=== PATIENT | female | born 1995 | race Caucasian/White ===

== ENCOUNTER 2018-10-30 14:41 | Emergency (ER) | payer BC ==
[2018-10-30 15:26] LABS: Urine Blood TRACE (NEG); Urine Glucose NEGATIVE (NEG); Urine Protein NEGATIVE (NEG)
[2018-10-30 16:14] LABS: Absolute Lymphocytes (CBC) 1.4 K/uL (0.7-4.9); Basophils % 0.5 % (0-1.3); Lymphocytes % 25.7 % (15.3-44.8); MPV 8.6 fL (7.6-11.3); RBC Red Blood Cell Count 4.14 M/uL (3.86-4.86)
[2018-10-30 16:19] LABS: Urine Bacteria 20-50 /HPF (<20); Urine Culture Reflex Order REFLEXED; Urine RBC <5 /HPF (NONE SEEN)
[2018-10-30 16:31] LABS: ALT/SGPT 15 U/L (12-78); AST/SGOT 12 U/L (15-37); Albumin 3.4 g/dL (3.4-5.0); Alkaline Phosphatase 46 U/L (45-117); BUN Blood Urea Nitrogen 6 mg/dL (7-18); Bicarbonate 23 mmol/L (21-32); Bilirubin Total 0.9 mg/dL (0.2-1.0); Glucose Level 79 mg/dL (74-106); Potassium 3.5 mmol/L (3.5-5.1); Sodium Level 139 mmol/L (136-145)
--- NOTE | 2018-10-30 17:01 | RAD REPORT ---
EXAM DESCRIPTION: US - Renal Ultrasound-Complete - 10/30/2018 4:31 pm CLINICAL HISTORY: back pain Flank pain COMPARISON: <Comparisons> FINDINGS: Both kidneys are normal in size, shape and echotexture. The right kidney measures 9.9 x 4.2 x 3.7 cm. No hydronephrosis, focal mass or perinephric fluid. The left kidney measures 10.0 x 5.7 x 3.8 cm. No hydronephrosis, focal mass or perinephric fluid. The urinary bladder is incompletely distended without gross abnormality seen. IMPRESSION: Unremarkable renal sonogram.
--- NOTE | 2018-10-30 19:09 | ER ---
Nurse's Notes [facility] Name: Rain Adams Age: 23 yrs Sex: Female : 1995 Arrival Date: 10/30/2018 Time: 14:44 Bed 5 Private MD: Unknown, Unknown Diagnosis: Threatened ;Urinary tract infection, site not specified Presentation: 10/30 14:51 Presenting complaint: Patient states: lower back pain radiating around to abdomen that aa5 began yesterday. Pt denies burning with urination. Pt denies vaginal bleeding. Reports being 11 weeks . Transition of care: patient was not received from another setting of care. Onset of symptoms was October 2018. Risk Assessment: Do you want to hurt yourself or someone else? Patient reports no desire to harm self or others. Initial Sepsis Screen: Does the patient meet any 2 criteria? No. Patient's initial sepsis screen is negative. Does the patient have a suspected source of infection? No. Patient's initial sepsis screen is negative. Care prior to arrival: None. 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 - Social history:: Smoking status: Patient/guardian denies using tobacco. - Ebola Screening: : No symptoms or risks identified at this time. Screenin:22 Abuse screen: Denies threats or abuse. Denies injuries from another. Nutritional jl7 screening: No deficits noted. Tuberculosis screening: No symptoms or risk factors identified. Fall Risk None identified. Assessment: 15:15 General: Appears in no apparent distress. uncomfortable, Behavior is calm, cooperative, jl7 appropriate for age. Pain: Complains of pain in lumbar area Pain radiates to right lower quadrant and left lower quadrant Pain currently is 2 out of 10 on a pain scale. at worst was 10 out of 10 on a pain scale. Quality of pain is described as aching, Pain began 1 day ago. Is intermittent. Neuro: Level of Consciousness is awake, alert, obeys commands, Oriented to person, place, time, situation, Moves all extremities. Full function Gait is steady, Speech is normal. Cardiovascular: Patient's skin is warm and dry. Respiratory: Airway is patent Respiratory effort is even, unlabored, Respiratory pattern is regular, symmetrical. GI: Abdomen is round non-distended. : Urine is cloudy, Reports urinary frequency, since "A couple of days." Denies burning with urination. EENT: No signs and/or symptoms were reported regarding the EENT system. Derm: Skin is pink, warm \\T\\ dry. Musculoskeletal: No signs and/or symptoms reported regarding the musculoskeletal system. 16:15 Reassessment: Patient appears in no apparent distress at this time. No changes from jl7 previously documented assessment. Patient and/or family updated on plan of care and expected duration. Pain level reassessed. Patient is alert, oriented x 3, equal unlabored respirations, skin warm/dry/pink. 18:00 Reassessment: Unable to obtain FHT, ERP notified. jl7 18:30 Reassessment: ERP attempted to assess FH activity, unable to verify at this time. jl7 19:22 Reassessment: Patient appears in no apparent distress at this time. Patient and/or ak1 family updated on plan of care and expected duration. Pain level reassessed. Patient is alert, oriented x 3, equal unlabored respirations, skin warm/dry/pink. Patient states feeling better. Patient states symptoms have improved. Vital Signs: 14:54 BP 131 / 73; Pulse 89; Resp 16 S; Temp 98.3(TE); Pulse Ox 98% on R/A; Weight 98.88 kg aa5 (R); Height 5 ft. 5 in. (165.10 cm) (R); Pain 2/10; 15:22 BP 123 / 74; Pulse 90; Resp 16 S; Pulse Ox 100% on R/A; jl7 14:54 Body Mass Index 36.28 (98.88 kg, 165.10 cm) aa5 ED Course: 14:44 Patient arrived in ED. ag5 14:45 Unknown, Unknown is Private Physician. ag5 14:51 Arm band placed on. aa5 14:53 Triage completed. aa5 14:56 Andrew, Jahala, RN is Primary Nurse. jl7 15:22 Patient has correct armband on for positive identification. Placed in gown. Bed in low jl7 position. Call light in reach. Side rails up X 1. Pulse ox on. NIBP on. Warm blanket given. 15:22 Urine collected: clean catch specimen, cloudy, saeed colored. [facility] 15:24 Stevie Dodd PA is PHCP. [facility] 15:24 Adrien Aguirre MD is Attending Physician. [facility] 16:05 Initial lab(s) drawn, by al, sent to lab. Inserted saline lock: 22 gauge in right jb1 antecubital area, using aseptic technique. Blood collected. 16:11 Urine Dipstick--Ancillary (enter results) Sent. [facility] 16:32 US Rp Exam Complete In Process Unspecified. EDDE 16:34 Ultrasound completed. Patient tolerated well. Patient moved back from ultrasound. lc3 18:50 Assist provider with pelvic exam: Set up pelvic tray. Performed by Stevie MCKEON jl Patient tolerated well. 19:08 PHCP role handed off by Stevie Dodd PA snw 19:08 Kimberlee Obrien FNP-C is PHCP. snw 19:22 IV discontinued, intact, bleeding controlled, No redness/swelling at site. Pressure ak1 dressing applied. Administered Medications: 19:20 Drug: Rocephin - (cefTRIAXone) 1 grams Route: IVPB; Infused Over: 30 mins; Site: right ak1 antecubital; 19:21 Follow up: IV Status: Completed infusion; IV Intake: 10ml ak1 Intake: 19:21 IV: 10ml; Total: 10ml. ak1 Outcome: 19:09 Discharge ordered by . snw 19:21 Discharged to home ambulatory, with family. ak1 19:21 Condition: good 19:21 Discharge instructions given to patient, family, Instructed on discharge instructions, follow up and referral plans. no drinking with medication, no driving heavy equipment, medication usage, safe sex practices, Demonstrated understanding of instructions, follow-up care, medications, Prescriptions given X 1. 19:27 Patient left the ED. ak1 Signatures: Dispatcher [employer] EDMS Rj Batres jb1 Kimberlee Obrien FNP-C FNP-Csnw Stevie Dodd PA PA jmm Calderon, Audri, RN RN aa5 Saeed Jones, RN RN ak1 Gladis Boone Jahala RN RN jl7 Kannan Krueger ag5
--- NOTE | 2018-10-30 19:10 | EDPHYS ---
Physician Documentation [facility] Name: Rain Adams Age: 23 yrs Sex: Female : 1995 Arrival Date: 10/30/2018 Time: 14:44 Bed 5 Private MD: Unknown, Unknown ED Physician Adrien Aguirre HPI: 10/30 15:11 This 23 yrs old Female presents to ER via Ambulatory with complaints of Back jmm Pain, Abdominal Pain, 11 Weeks Preg. 15:11 The patient presents with pain that is acute, with no known mechanism of injury. Onset: jmm The symptoms/episode began/occurred gradually, 1 day(s) ago. The pain radiates to the pelvis. Associated signs and symptoms: Pertinent negatives: fever, hematuria, incontinence, numbness, tingling, urinary retention, vomiting, weakness. This is a 23 year old that presents to the ED with complaints of lower back pain which radiated to her lower abdomen and pelvis yesterday. patient states abdominal pain has decreased but pain remains in the lower back. Denies fever, denies vomiting, denies diarrhea. . 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 - Social history:: Smoking status: Patient/guardian denies using tobacco. - Ebola Screening: : No symptoms or risks identified at this time. ROS: 15:11 Constitutional: Negative for fever, chills, and weight loss, Cardiovascular: Negative jmm for chest pain, palpitations, and edema, Respiratory: Negative for shortness of breath, cough, wheezing, and pleuritic chest pain. 15:11 Abdomen/GI: Positive for abdominal pain. 15:11 Abdomen/GI: Negative for nausea and vomiting, diarrhea. 15:11 Back: Positive for lower back pain. 15:11 MS/extremity: Positive for pain. 15:11 All other systems are negative. Exam: 15:11 Constitutional: This is a well developed, well nourished patient who is awake, alert, jmm and in no acute distress. Head/Face: atraumatic. Eyes: EOMI, no conjunctival erythema appreciated ENT: Moist Mucus Membranes Neck: Trachea midline, Supple Chest/axilla: Normal chest wall appearance and motion. Cardiovascular: Regular rate and rhythm. No edema appreciated Respiratory: Normal respirations, no respiratory distress appreciated 15:11 Abdomen/GI: Inspection: abdomen appears normal, Bowel sounds: normal, Palpation: abdomen is soft and non-tender, in all quadrants. 15:11 Back: CVA tenderness, is absent, is noted bilaterally. 15:11 Musculoskeletal/extremity: ROM: intact in all extremities. 15:11 Skin: Appearance: Color: normal in color. 15:11 Neuro: Orientation: is normal, Mentation: is normal, Memory: is normal, Motor: is normal. 15:11 Psych: Behavior/mood is pleasant, cooperative. Vital Signs: 14:54 BP 131 / 73; Pulse 89; Resp 16 S; Temp 98.3(TE); Pulse Ox 98% on R/A; Weight 98.88 kg aa5 (R); Height 5 ft. 5 in. (165.10 cm) (R); Pain 2/10; 15:22 BP 123 / 74; Pulse 90; Resp 16 S; Pulse Ox 100% on R/A; jl7 14:54 Body Mass Index 36.28 (98.88 kg, 165.10 cm) aa5 MDM: 15:36 Patient medically screened. [facility] 17:38 Data reviewed: vital signs, nurses notes. [facility] 17:42 Data reviewed: lab test result(s), radiologic studies, ultrasound. Counseling: I had a [facility] detailed discussion with the patient and/or guardian regarding: the historical points, exam findings, and any diagnostic results supporting the discharge/admit diagnosis, lab results, radiology results, the need for outpatient follow up, to return to the emergency department if symptoms worsen or persist or if there are any questions or concerns that arise at home. ED course: Patient is alert and non toxic in appearance in the ED. Abdomen is soft and non tender to palpation. I do not suspect appendicitis. Patient will be prescribed oral antibiotics. Patient is advised to follow up with ob for reevaluation and otherwise given strict return precautions. patient understood and agrees with the plan of care. . 18:47 Transition of care: After a detail discussion of the patient's case, care is [facility] transferred to Kimberlee GURROLA. ED course: Due to confirmed IUP unable to contact US for emergent US to evaluate for demise. Unable to to obtain FHT. Cervix is closed. Patient advised of the possibility of demise/threatened . Patient is given strict return precautions. This case was discussed with Dr. Aguirre whom agrees with the plan of care. . 10/30 15:09 Order name: Urine Microscopic Only; Complete Time: 16:26 10/30 15:12 Order name: Urine Dipstick--Ancillary (enter results) [facility] 10/30 15:12 Order name: Urine --Ancillary (enter results); Complete Time: 15:45 [facility] 10/30 15:14 Order name: Urine Dipstick-Ancillary; Complete Time: 15:45 [facility] 10/30 15:45 Order name: CBC with Diff; Complete Time: 16:26 [facility] 10/30 15:45 Order name: CMP; Complete Time: 16:33 [facility] 10/30 15:45 Order name: Saline Lock; Complete Time: 16:05 [facility] 10/30 15:45 Order name: US Rp Exam Complete; Complete Time: 17:05 [facility] 10/30 16:22 Order name: Urine Culture [facility] 10/30 17:30 Order name: Heart Tones; Complete Time: 18:27 [facility] 10/30 18:17 Order name: Abo/rh Typing; Complete Time: 19:08 [facility] 10/30 18:18 Order name: Quantitative Hcg [facility] Administered Medications: 19:20 Drug: Rocephin - (cefTRIAXone) 1 grams Route: IVPB; Infused Over: 30 mins; Site: right ak1 antecubital; 19:21 Follow up: IV Status: Completed infusion; IV Intake: 10ml ak1 Disposition: 10/30/18 19:09 Discharged to Home. Impression: Threatened , Urinary tract infection, site not specified. - Condition is Stable. - Discharge Instructions: Threatened Miscarriage, Urinary Tract Infection, Adult, Pelvic Rest. - Prescriptions for Macrobid 100 mg Oral Capsule - take 1 capsule by ORAL route every 12 hours for 7 days; 14 capsule. - Medication Reconciliation Form, Thank You Letter, Antibiotic Education, Prescription Opioid Use, Work release form form. - Follow up: Private Physician; When: 2 - 3 days; Reason: Recheck today's complaints, Continuance of care, Repeat Beta-HCG (48 Hours), Re-evaluation by your physician. Addendum: 11/02/2018 09:25 Co-signature as Attending Physician, Adrien Aguirre MD I agree with the assessment and k dr plan of care. Signatures: Dispatcher [employer] EDMS Adrien Aguirre MD MD [facility] Kimberlee Obrien, GIGI-C RECREATIONAL ASSISTANT-CsnStevie Lees PA PA m Erika Castlilo, RN RN aa5 Mayra Jones RN RN ak1 Corrections: (The following items were deleted from the chart) 10/30 18:52 18:47 ED course: Due to confirmed IUP unable to contact US for emergent US to evaluate [facility] for demise. Unable to to obtain FHT. Cervix is closed. Patient advised of the possibility of demise/threatened . Patient is given strict return precautions. . [facility] 19:27 19:09 10/30/2018 19:09 Discharged to Home. Impression: Threatened ; Urinary ak1 tract infection, site not specified. Condition is Stable. Discharge Instructions: Threatened Miscarriage, Urinary Tract Infection, Adult, Pelvic Rest. Prescriptions for Macrobid 100 mg Oral Capsule - take 1 capsule by ORAL route every 12 hours for 7 days; 14 capsule. and Forms are Medication Reconciliation Form, Thank You Letter, Antibiotic Education, Prescription Opioid Use. Follow up: Private Physician; When: 2 - 3 days; Reason: Recheck today's complaints, Continuance of care, Repeat Beta-HCG (48 Hours), Re-evaluation by your physician. snw
[2018-10-30] MEDS ORDERED: CEFTRIAXONE/SWI 1gm 1 GM/10 ML SYR ONE (19:18)
[2018-10-30 20:35] VITALS: TEMP 98.3
[2018-10-30 20:36] VITALS: BP 123/74; O2SAT 100
== END 2018-10-30 19:27 | disposition home or self-care (01) ==
LOC: ER 14:41
DX: O20.0 Threatened abortion (principal); O23.41 Unspecified infection of urinary tract in pregnancy, first trimester; Z3A.11 11 weeks gestation of pregnancy; Z88.5 Allergy status to narcotic agent
CPT/HCPCS: 87088; 85025; 87086; 36415; 86900; 81025; 86901; 84702; 80053; 76770; 96374; 99284; J0696; 81003; 81015

== ENCOUNTER 2020-10-10 23:53 | Emergency (ER) | payer BC, OTHER ==
--- OUTSIDE RECORDS SUMMARY | 2020-10-10 23:56 | XMS REPORT | Continuity of Care Document ---
:1995 Author Organization [facility] t Address [address] [place] [address] Care Team Providers Name Role Phone Lab, Fam Pob I Attending Clinician Unavailable Juan Carlos CH, L Attending Clinician Doctor Unassigned, Name Attending Clinician Unavailable Coretta CH Attending Clinician Coretta CH Admitting Clinician Payers Payer Name Policy Type Policy Number Effective Date Expiration Date S ource Problems This patient has no known problems. Allergies, Adverse Reactions, Alerts Allergy Allergy Status Severity Reaction(s) Onset Inactive Treating Comm ents Source Name Type Date Date Clinician hydrocod DA Active SV 2019-0 [facility] [place] acetamin DA Active SV 2018-0 [facility] ophen [facility] [place] Medications This patient has no known medications. Procedures This patient has no known procedures. Encounters Start End Encounter Admission Attending Care Care Encounter Source Date/Time Date/Time Type Type Clinicians Facility Department ID 2020-02-18 2020-02-18 Laboratory Lab, [facility] 1.2.840.114 [id number] 10:14:58 10:34:58 Only Fam Pob I Health 350.1.13.10 [place] 4.2.7.2.686 Professio [phone] [place] [address] [address] 2019-10-26 2019-10-26 Telephone Ad, [facility] [id number] 00:00:00 00:00:00 Abi Marquez 350.1.13.10 [place] 4.2.7.2.686 Professio [phone] [address] 2019-10-15 2019-10-15 Routine Adum, [facility] 1.2.840.114 [id number] 09:21:04 10:09:05 Abi Marquez 350.1.13.10 Visit [place] 4.2.7.2.686 Professio [phone] [address] 2019-10-15 2019-10-15 Orders Doctor [place] 1.2.840.114 [id number] 00:00:00 00:00:00 Only Unassigned, FATOU 350.1.13.10 [facility] 4.2.7.2.686 [id number] 009 2019-09-16 2019-09-16 [facility] 1.2.840.114 [id number] 00:00:00 00:00:00 Marianne Marquez 350.1.13.10 [place] 4.2.7.2.686 Professio [phone] [address] 2019-09-09 2019-09-10 [facility] 1.2.840.114 [id number] 06:02:00 21:50:00 Encounter Marianne Marquez 350.1.13.10 [place] 4.2.7.2.686 [place] [phone] 083 2019-09-09 2019-09-09 Orders Doctor [place] 1.2.840.114 [id number] 00:00:00 00:00:00 Only Unassigned, FATOU 350.1.13.10 [facility] 4.2.7.2.686 [id number] 009 2019-09-08 2019-09-08 Telephone [facility] 1.2.840.114 [id number] 00:00:00 00:00:00 Marianne Marquez 350.1.13.10 [place] 4.2.7.2.686 javicolleen [id number] nal [address] Building Results Test Description Test Time Test Comments Results Result Comments Source URINALYSIS COMPLETE 2019-07-27 14:39:00 Test Item Value Reference Range Interpretation Comme nts UA COLOR (test code = COLU) YELLOW YELLOW UA APPEARANCE (test code = APPU) Slightly-Cloudy CLEAR UA GLUCOSE DIPSTICK (test code = DGLUU) NEGATIVE NEG UA BILIRUBIN DIPSTICK (test code = BILU) NEGATIVE NEG UA KETONE DIPSTICK (test code = KETU) NEGATIVE NEG UA SPECIFIC GRAVITY (test code = SGU) 1.003 1.001-1.035 N UA BLOOD DIPSTICK (test code = RODOLFO) NEG NEG UA PH DIPSTICK (test code = BUTCH) 7.0 5-9 UA PROTEIN DIPSTICK (test code = PROU) NEGATIVE NEG UA UROBILINIOGEN DIPSTICK (test code = URO) NEGATIVE mg/dL NEG UA NITRITE DIPSTICK (test code = SCOTT) NEG NEG UA LEUKOCYTE ESTERASE DIPSTICK (test code = LEUU) 2+ NEG A UA WBC (test code = WBCU) 6-10 #/hpf NONE SEEN A UA RBC (test code = RBCU) 3-5 #/hpf NONE SEEN A UA EPITHELIAL CELLS (test code = EPIU) MODERATE #/HPF RARE-FEW A UA BACTERIA (test code = BACU) MANY /HPF RARE-FEW A UA HYALINE CAST (test code = HYALU) 0-2 #/hpf A UA MUCUS (test code = MUCU) RARE NONE SEEN URINE SAMPLE: CLEAN CATCHCOMPREHENSIVE METABOLIC [id number] 14:20:00 Test Item Value Reference Range Interpretation Comments SODIUM (test code = NA) 139 mEq/L 135-145 N POTASSIUM (test code = K) 3.5 mEq/L 3.5-5.0 N CHLORIDE (test code = CL) 105 mEq/L 100-115 N CARBON DIOXIDE (test code = CO2) 24 mEq/L 22-31 N ANION GAP (test code = GAP) 13.20 10-20 N GLUCOSE (test code = GLU) 71 mg/dL 65-110 N BLOOD UREA NITROGEN (test code = 7 mg/dL 7-18 N BUN) GLOMERULAR FILTRATION RATE (test 102 ml/min >60 N code = GFR) CREATININE (test code = CREAT) 0.7 mg/dL 0.5-1.0 N TOTAL PROTEIN (test code = PROT) 7.0 gm/dL 6.3-8.2 N ALBUMIN (test code = ALB) 2.8 gm/dL 3.4-4.8 L CALCIUM (test code = CA) 8.7 mg/dL 8.4-10.2 N BILIRUBIN TOTAL (test code = BILT) 0.5 mg/dL 0.2-1.0 N SGOT/AST (test code = AST) 14 units/L 15-37 L SGPT/ALT (test code = ALT) 14 units/L 12-78 N ALKALINE PHOSPHATASE TOTAL (test 77 units/L 46-116 N code = ALKP) UA RFLX MICR CULT IF [id number] 14:07:00 Test Item Value Reference Range Interpretation Comments UA COLOR (test code = COLU) YELLOW YELLOW UA APPEARANCE (test code = CLOUDY CLEAR A APPU) UA GLUCOSE DIPSTICK (test code NEGATIVE NEG = DGLUU) UA BILIRUBIN DIPSTICK (test NEGATIVE NEG code = BILU) UA KETONE DIPSTICK (test code NEGATIVE NEG = KETU) UA SPECIFIC GRAVITY (test code 1.006 1.001-1.035 N = SGU) UA BLOOD DIPSTICK (test code = NEG NEG RODOLFO) UA PH DIPSTICK (test code = 6.0 5-9 BUTCH) UA PROTEIN DIPSTICK (test code NEGATIVE NEG = PROU) UA UROBILINIOGEN DIPSTICK NEGATIVE mg/dL NEG (test code = URO) UA NITRITE DIPSTICK (test code NEG NEG = SCOTT) UA LEUKOCYTE ESTERASE DIPSTICK 2+ NEG A (test code = LEUU) UA WBC (test code = WBCU) 6-10 #/hpf NONE SEEN A UA RBC (test code = RBCU) 3-5 #/hpf NONE SEEN A UA EPITHELIAL CELLS (test code MODERATE #/HPF RARE-FEW A = EPIU) UA BACTERIA (test code = BACU) MANY /HPF RARE-FEW A Indication for culture: Suprapubic PainCBC W/AUTO [id number] 13:59:00 Test Item Value Reference Range Interpretation Comments WHITE BLOOD CELL (test code = WBC) 9.2 K/mm3 6.6-12.1 N RED BLOOD CELL (test code = RBC) 3.74 M/mm3 3.45-5.01 N HEMOGLOBIN (test code = HGB) 11.7 g/dL 10.7-13.9 N HEMATOCRIT (test code = HCT) 35.0 % 32.1-42.1 N MEAN CELL VOLUME (test code = MCV) 94 fL 84.1-94.8 N MEAN CELL HGB (test code = MCH) 31.3 pg 27-35 N MEAN CELL HGB CONCETRATION (test 33.4 gm/dL 32.2-34.1 N code = MCHC) RED CELL DISTRIBUTION WIDTH (test 12.9 % 12.4-16.5 N code = RDW) PLATELET COUNT (test code = PLT) 224 K/mm3 133-385 N MEAN PLATELET VOLUME (test code = 10.1 fl 9.1-12.7 N MPV) NEUTROPHIL % (test code = NT%) 75.7 % 56.5-79.4 N LYMPHOCYTE % (test code = LY%) 13.0 % 14.3-34.3 L MONOCYTE % (test code = MO%) 10.5 % 5.1-10.4 H EOSINOPHIL % (test code = EO%) 0.2 % 0.1-3.0 N BASOPHIL % (test code = BA%) 0.2 % 0.1-1.0 N NEUTROPHIL # (test code = NT#) 6.9 K/mm3 LYMPHOCYTE # (test code = LY#) 1.2 K/mm3 MONOCYTE # (test code = MO#) 1.0 K/mm3 EOSINOPHIL # (test code = EO#) 0.02 K/mm3 BASOPHIL # (test code = BA#) 0.0 K/mm3 MANUAL DIFF REQUIRED (test code = NO MDIFF) RBC MORPHOLOGY REQUIRED (test code NORMAL NORMAL = RBCM) PLATELET MORPHOLOGY REQUIRED (test NORMAL NORMAL code = PLTMR) - US PREG AFTER [id number] 14:26:00 Patient Name: ANDREW HAWKINS Unit No: [id number] EXAMS: CPT CODE: [id number] US PREG AFTER [address] [facility] [address] [place], [place] [address] OBSTETRICAL ULTRASOUND REPORT Pat. Name: ANDREW HAWKINS Pat. No: [id number] Study Date: 04/20/2019 1:01pm , Age: 05 1995, 23 Pregnancies: 3, Para 1 LMP: Unknown GA by US: 19w3d GA Selected: 19w2d (From Known E) BILLY: 09/12/2019 Referring MD: ARJUN QUINTANILLA Furnace Erector: Aurelio Willoughby RDMS, T CPT4: [id number] Admitting MD: ARJUN QUINTANILLA Hist/Ind: SCAN 1 ANATOMY MEASUREMENTS AGE GROWTH EVALUATION Measurement GA Range Srce %for GA Ratios ----- ---- ------- BPD 4.6 cm 19w6d (40i4z-48z5o) Hadl BPD 76% FL/BPD 0.65 HC 16.9 qh05e1c (27d4l-55i8a) Hadl HC 54% FL/AC 0.20 APD 4.8 cm APD HC/AC 1.14 (1.06 - 1.25) TAD 4.6 cm TAD CI 0.81 (0.70 - 0.86) AC 14.8 kv55j7f (60v6m-06p7m) Hadl AC 60% FL 3.0 cm 18w6d (11f4p-11z8d) Hadl FL 42% HL 3.0 cm 19w6d (62a9p-56r9v) Willis HL 60% GA for sonogram 19w3d (84x3q-81p3q) Weight Estimate: based on (BPD,HC,AC,FL) Hadlock Weight: 306 gm (262-351) Hadlock :0lbs, 10oz Cervical Length: 3.6 cm Heart Rate: 130 bpm MATERNAL ANATOMY Ovaries LxHxW (cm) Right 3.1 x 2.8 x 2.3 Vol: 10.5cc Left 3.1 x 1.5 x 2.1 Vol: 5.1cc Ovarian Cysts LxHxW (cm) R1: 1.6 x 1.4 x 1.7 CLINICAL SUMMARY Type of Gestation: Mayes Intrauterine in breech presentation. size is appropriate for gestational age. motion and organs seen: heart motion seen somatic activity observed body and limb movements seen [facility] Rad[facility] Department PHYS: Arjun Antoine [address] : 1995 AGE: 23 SEX: Marcie [place], [place] [address] LOC: F.RAD PHONE #: [phone] EXAM DATE: 04/20/2019 STATUS: REG CLI FAX #: [phone] RAD NO: Page 1 Signed Report (CONTINUED) Patient Name: ANDREW HAWKINS Unit No: [id number] EXAMS: CPTCODE: [id number] US PREG AFTER 1ST TRI 64662 <Continued> Four chamber heart observed Left ventricular outflow tract (LVOT) seen Right ventricular outflow tract (RVOT) seen Normal intracranial anatomy seen Umbilical cord insertion in fetus seen stomach, Renal Fossa, Bladder and Spine seen Three vessel umbilical cord noted abnormalities observed: None seen at this exam Placental location: Posterior Placental maturity : Grade 1 There is no evidence of placenta previa. Amniotic fluid volume is normal. Uterus and adnexa: No significant abnormality is seen.Thank you for allowing us to participate in the care of this patient. Ran Sheehan M.D. Electronic Signature 04/20/2019 02:26pm at 1426 Reported and signed by: Ran Sheehan MD CC: Arjun Quintanilla MD Technologist: Aurelio Willoughby RDMS, RVT Probe: Trnscrbd D/ (1426) [id number] Orig Print D/T: S: 04/20/2019 (1426) [facility] Radiology Department PHYS: Arjun Antoine [address] : 1995 AGE: 23 SEX: Marcie [place] [address] LOC: CharliRAD PHONE #: [phone] EXAM DATE: 04/20/2019 STATUS:REG CLI FAX #: [phone] RAD NO: Page 2 Signed Report Patient Name: ANDREW HAWKINS Unit No: [id number] EXAMS: CPT CODE: [id number] US PREG AFTER TRI 501[address] <Continued> [facility] NAME: ANDREW HAWKINS RadiologyDepartment PHYS: [email or web address] - Arjun Quintanilla [address]OB: 1995 AGE: 23 SEX: Marcie [place] [address] LOC:CharliRAD PHONE #: [phone] EXAM DATE: 04/20/2019 STATUS: REG CLI FAX #: [phone] RAD NO: Page 3 Signed ReportCHEMISTRY MISCELLANEOUS [id number] 12:14:00 Test Item Value Reference Range Interpretation Comments CHEMISTRY TEST SEE REPORT CHROMOSIME (test code = MICROARRAY TESTC) ANALYSIS RESUL T: Normal Female CHEMISTRY TEST TEST NOT PERFORMED RESULT (test code = RESULTC) CHEMISTRY TEST REF TEST NOT PERFORMED RANGE (test code = REFC) CHEMISTRY TEST TEST NOT PERFORMED UNITS (test code = UNITC) ANORACHEMISTRY MISCELLANEOUS [id number] 12:14:00 Test Item Value Reference Range Interpretation Comments CHEMISTRY TEST (test SEE REPORT CHROM OSIME code = TESTC) MICROARRAY ROGERS LYSIS RESULT: Normal Female ANORAPRODUCTS OF [id number] 16:46:00 RUN DATE: 11/09/18 [facility] PAGE 1 RUN TIME: 1927 Specimen Inquiry RUN USER: INTERFACE PATIENT: ANDREW HAWKINS [facility] [id number] AGE/SX: 23/F ROOM: RE11/06/18REG DR: Arjun Quintanilla MD : [birth year] BED: DIS: STATUS: [facility] TLOC: SPEC #: [id number] RECD: 11/06/18 STATUS: [facility] #: [id number] BENIGNO: 11/06/18- SUBM DR: Arjun Quintanilla MD ENTERED: 11/06/18 SP TYPE: POC[ OTHR DR: ORDERED: LEVEL IV CODES: U01102 - ENDOMETRIUM, NO PROCEDURES: LEVEL IV (Incomplete) TISSUES: ENDOMETRIUM, NOS - POC CLINICAL HISTORY 23 year old, missed @ 12 weeks(wpd) FINAL DIAGNOSIS Products of conception: - hydropic placental tissue -decidua - rare fragments of embryonic tissue CPT code(s): 023[address] [facility]/wpd 11/09/18 GROSS DESCRIPTION ANATOMIC SOURCE OF TISSUE (per Requisition): Products of conception The specimen is received in a formalin-filled container, labeled with the patient's name and designated "products of conception". The specimen consists of multiple portions of vivas and red tissue on a piece of Telfa pad and a suction collection container aggregating to 6 x 4 x 2.5 cm. Repres entative pieces are submitted in A1 and A2. hz/wpd 11/06/18 @ 1807 MICROSCOPIC DESCRIPTION Placental and decidual tissue is present. Chorionic villi are hydropic. No trophoblastic hyperplasia, central cisterns or trophoblastic inclusions are identified. cds/wpd 11/09/18 CONTINUED ON NEXT PAGE RUN DATE: 11/09/18 [facility] PAGE 2 RUN TIME: 1927 Specimen Inquiry RUN USER: INTERFACE JESUS EC #: [id number] PATIENT: ROSSANDREW MCDONALD #[id number] (Continued) Signed Amaury Mora 11/09/18 1646 END OF REPORT HCG [id number] 16:31:00 Test Item Value Reference Range Interpretation Comments HCG SERUM (test 5349 INTERPRETATI ON:VALUES BETWEEN code = HCG) 15-20 milliInte rnational units/mL NEED T O BERETESTED WITHIN 48 HOURS . All units for these ranges ar e in milliInternatio nalunits/mL0-1 WK AFTER CONCEP TION 0-50 1-2 W KS AFTER CONCEPTION 40-3002-3 WKS A FTER CONCEPTION 100-1 ,0003-4 WKS AFTER CONCEPTIO N 500-6,0001-2 MO NTHS AFTER CONCEPTION 5,000-200,0002- 3 MONTHS AFTER CONCEPTION 10,000-100,0002 ND TRIMESTER 3,000-50,0003RD TRIMESTER 1 ,000-50,000 SPECIMENS WITH AN HCG LEVEL FROM 0-6 milliInternatio nalunits/mL SHOULD BE CONSI DERED NEGATIVE CHEMISTRY 7 [id number] 16:05:00 Test Item Value Reference Range Interpretation Comments SODIUM (test code = NA) 138 mEq/L 135-145 N POTASSIUM (test code = K) 4.0 mEq/L 3.5-5.0 N CHLORIDE (test code = CL) 104 mEq/L 100-115 N CARBON DIOXIDE (test code = CO2) 27 mEq/L 22-31 N ANION GAP (test code = GAP) 11.00 10-20 N GLUCOSE (test code = GLU) 77 mg/dL 65-110 N BLOOD UREA NITROGEN (test code = 6 mg/dL 7-18 L BUN) GLOMERULAR FILTRATION RATE (test 122 ml/min >60 N code = GFR) CREATININE (test code = CREAT) 0.6 mg/dL 0.5-1.0 N CALCIUM (test code = CA) 8.6 mg/dL 8.4-10.2 N CBC W/AUTO [id number] 15:30:00 Test Item Value Reference Range Interpretation Comments WHITE BLOOD CELL (test code = WBC) 5.5 K/mm3 6.6-12.1 L RED BLOOD CELL (test code = RBC) 4.06 M/mm3 3.45-5.01 N HEMOGLOBIN (test code = HGB) 12.8 g/dL 10.7-13.9 N HEMATOCRIT (test code = HCT) 38.2 % 32.1-42.1 N MEAN CELL VOLUME (test code = MCV) 94 fL 84.1-94.8 N MEAN CELL HGB (test code = MCH) 31.5 pg 27-35 N MEAN CELL HGB CONCETRATION (test 33.5 gm/dL 32.2-34.1 N code = MCHC) RED CELL DISTRIBUTION WIDTH (test 12.1 % 12.4-16.5 L code = RDW) PLATELET COUNT (test code = PLT) 222 K/mm3 133-385 N IMMATURE PLATELET FRACTION (test 0.0 % 0.0-10.8 N code = IPF) MEAN PLATELET VOLUME (test code = 10.6 fl 9.1-12.7 N MPV) NEUTROPHIL % (test code = NT%) 59.2 % 56.5-79.4 N LYMPHOCYTE % (test code = LY%) 31.1 % 14.3-34.3 N MONOCYTE % (test code = MO%) 8.6 % 5.1-10.4 N EOSINOPHIL % (test code = EO%) 0.5 % 0.1-3.0 N BASOPHIL % (test code = BA%) 0.4 % 0.1-1.0 N NEUTROPHIL # (test code = NT#) 3.3 K/mm3 LYMPHOCYTE # (test code = LY#) 1.7 K/mm3 MONOCYTE # (test code = MO#) 0.5 K/mm3 EOSINOPHIL # (test code = EO#) 0.03 K/mm3 BASOPHIL # (test code = BA#) 0.0 K/mm3 RBC MORPHOLOGY REQUIRED (test code NORMAL NORMAL = RBCM) PLATELET MORPHOLOGY REQUIRED (test NORMAL NORMAL code = PLTMR) - US PREG EVAL 1ST [id number] 18:04:00 Patient Name: ANDREW HAWKINS Unit No: [id number] EXAMS: CPT CODE: [id number] US PREG EVAL [address]ST [address] [facility] [address] [place], [place] [address] OBSTETRICAL ULTRASOUND REPORT Pat. Name: ANDREW HAWKINS Pat. No: [id number] Study Date: 11/02/2018 5:13pm , Age: 05 1995, 23 Pregnancies: 2, Para 1001 LMP: 08/11/2018 GA by LMP: 11w6d GA by US: 11w2d GA Selected: 12w1d (From Known E) BILLY: 05/16/2019 Referring MD: ARJUN QUINTANILLA Furnace Erector: Ifrah Ellsworth RDMS CPT4: [id number] Admitting MD: ARJUN QUINTANILLA Hist/Ind: SCAN#1 VIABILITY ---- MEASUREMENTS AGE GROWTH EVALUATION Measurement GA Range Srce %for GA Ratios ----- ---- ------- CRL 4.4 cm 11w2d (78q3r-25i4h) Hadl CRL <05 GA for sonogram 11w2d (75y6n-04d3f) based on (CRL) Avg Cervical Length: 4.3 cm MATERNAL ANATOMY Uterus LxHxW (cm) Size: 12.2 x 8.6 x9.1 Vol: 499.9cc Ovaries LxHxW (cm) Right 3.5 x 2.1 x 2.7 Vol: 10.4cc Left 3.7 x 3.1 x 2.4 Vol: 14.4cc Ovarian Cysts LxHxW (cm) R1: 2.4 x 2.0 x 2.3 Desc: Corpus Luteum CLINICAL SUMMARY Type of Gestation: Mayes abnormalities observed: CARDIAC ACTIVITY NOT SEEN. DEMISE ACRANIA IS NOTED THERE IS EVIDENCE OF PLEURAL EFFUSION AND ASCITIES THE AMNIOTIC FLUID IS HIGHLY ECHOGENIC Placental location: Right lateral Placental maturity : Grade 1 Amniotic fluid volume is normal. [facility] NAME: ANDREW HAWKINS Radiology Department PHYS: Arjun Antoine [address] : 1995 AGE: 23 SEX: [place] [address] LOC: Marcie.RAD PHONE #: [phone] EXAM DATE: 11/02/2018 STATUS: REG CLI FAX #: [phone] RAD NO: Page 1 Signed Report (CONTINUED) Patient Name: ANDREW HAWKINS Unit No: [id number] EXAMS: CPT CODE: [id number] US PREG EVAL 1ST TRIMTR [address] <Continued> Uterus and adnexa: No significant abnormality is seen. GENETIC ABNORMALITY CANNOT BE EXCLUDED. FINDINGS GIVEN TO DR QUINTANILLA BY PHONE AT 6PM 11/02/2018 Thank you for allowing us to participate in the care of this patient. Kera Holliday M.D. Electronic Signature 11/02/2018 06:04pm at 1804 Reported and signed by: Kathleen Holliday MD CC: Arjun Quintanilla MD Technologist: Ifrah Ellsworth RDMS Probe: Trnscrbd D/ (1803) [email or web address] Orig Print D/T: S: 11/02/2018 (180) [facility] NAME: ANDREW HAWKINS Radiology DepartmentPHYS: RENEE Roberts DwightArjun Ortiz [address] : 1995 AGE: 23 SEX: F [place] [address] LOC: CharliRAD PHONE #: [phone] EXAM DATE: 11/02/2018 STATUS: REG CLI FAX #: [phone] RAD NO: Page 2 Signed Report Patient Name: ANDREW HAWKINS Unit No: [id number] EXAMS: CPT CODE: [id number] US PREG EVAL 1ST TRIMTR [address] <Continued> [facility] NAME: ANDREW HAWKINS Radiology Department PHYS: 05 - Arjun Quintanilla [address] : 1995 AGE: 23 SEX: F [place], [place] [address] LOC: CharliRAD PHONE #: [phone] EXAM DATE: 11/02/2018 STATUS: REG CLI FAX #: [phone] RAD NO: Page 3 Signed Report- US PREG UT [id number] 18:04:00 Patient Name: ANDREW HAWKINS Unit No: [id number] EXAMS: CPT CODE: [id number] US PREG [place] TRANSVAGINAL [address] [facility] [address] [place], [place] [address] OBSTETRICAL ULTRASOUND REPORT Pat. Name: ANDREW HAWKINS Pat. No: [id number] Study Date: 11/02/2018 5:13pm , Age: 05 1995, 23 Pregnancies: 2, Para 1001 LMP: 08/11/2018 GA by LMP: 11w6d GA by US: 11w2d GA Selected: 12w1d (From Known E) BILLY: 05/16/2019 Referring MD: Arjun Quintanilla Furnace Erector: Ifrah Ellsworth RDMS CPT4: [id number] Hist/Ind: SCAN#1 VIABILITY MEASUREMENTS AGE GROWTH EVALUATION Measurement GA Range Srce %for GA Ratios ----- ---- ------- CRL 4.4 cm 11w2d (38w2b-65o4w) Hadl CRL <05 GA for sonogram 11w2d (99h7b-15u3z) based on (CRL) Avg Cervical Length: 4.3 cm MATERNAL ANATOMY Uterus LxHxW (cm) Size: 12.2 x 8.6 x 9.1 Vol: 499.9cc Ovaries LxHxW (cm) Right 3.5 x 2.1 x 2.7 Vol: 10.4cc Left 3.7 x 3.1 x 2.4 Vol: 14.4cc Ovarian Cysts LxHxW (cm) R1: 2.4 x 2.0 x 2.3 Desc: Corpus Luteum CLINICAL SUMMARY Type of Gestation: Mayes abnormalities observed: CARDIAC ACTIVITY NOT SEEN. DEMISE ACRANIA IS NOTED THEREIS EVIDENCE OF PLEURAL EFFUSION AND ASCITIES THE AMNIOTIC FLUID IS HIGHLY ECHOGENIC Placental location: Right lateral Placental maturity : Grade 1 Amniotic fluid volume is normal. Uterus and adnexa: [facility] NAME: ANDREW HAWKINS Radiology Department PHYS: PINEDA. - Arjun Quintanilla [address] : 1995 AGE: 23 SEX: F [place], [place] [address] LOC: CharliRAD PHONE #: [phone] EXAM DATE: 11/02/2018 STATUS: DEP [place] #: [phone] RAD NO: Page 1 Signed Report (CONTINUED) Patient Name: ANDREW HAWKINS Unit No: [id number] EXA MS: CPT CODE: [id number] [facility] [place] TRANSVAGINAL [address] <Continued> No significant abnormality is seen. GENETIC ABNORMALITY CANNOT BE EXCLUDED. FINDINGS GIVEN TO DR QUINTANILLA BY PHONE AT 6PM 11/02/2018 Thank you for allowing us to participate in the care of this patient. Kera Holliday M.D. Electronic Signature 11/02/2018 06:04pm at 1804 Reported and signed by: Kathleen Holliday MD CC: Arjun Quintanilla MD Technologist: Ifrah Ellsworth, Probe: [id number] Trnscrbd D/ (1804) LitCER Orig Print D/T: S: 11/07/2018 (1323) [facility] NAME:ANDREW HAWKINS Radiology Department PHYS: Yudi Antoine [address] : 1995 AGE: 23 SEX: F [place] [address] LOC: CharliRAD PHONE #: [phone] EXAM DATE: 11/02/2018 STATUS: DEP CLI FAX #: [phone] RAD NO: Page 2 Signed Report Patient Name: ANDREW HAWKINS Unit No: [id number] EXAMS: CPT CODE: [id number] [facility] [place] TRAN[facility] [address] <Continued> [facility] NAME: ANDREW HAWKINS Radiology Department PHYS: Arjun Antoine [address] : 1995 AGE: 23 SEX: F [place] [address] LOC: Marcie.RAD PHONE #: [phone] EXAM DATE: 11/02/2018 STATUS: DEP CLI FAX #: [phone] RAD NO: Page 3 Signed Report
[2020-10-11 00:40] LABS: Urine Blood Negative (Negative); Urine Glucose Negative (Negative); Urine Protein Negative (Negative); Urine Specific Gravity >=1.030 (1.005-1.030); Urine pH 5.5 (5.0-7.0)
[2020-10-11] MEDS ORDERED: NA CHLORIDE 0.9% 500 ML ONE (00:45)
[2020-10-11] MEDS ORDERED: KETOROLAC 30 MG/ML INJ ONE (00:45)
[2020-10-11 00:50] LABS: Absolute Lymphocytes (CBC) 2.2 K/uL (0.7-4.9); Basophils % 0.5 % (0-1.3); Hematocrit 38.9 % (36.0-45.0); Lymphocytes % 19.9 % (15.3-44.8); MPV 7.7 fL (7.6-11.3); RBC Red Blood Cell Count 4.38 M/uL (3.86-4.86)
[2020-10-11 00:55] LABS: Urine Specific Gravity/Preg >1.030 (1.005-1.030)
[2020-10-11 00:55] LABS: Protime INR 1.11
[2020-10-11 01:04] LABS: ALT/SGPT 30 U/L (12-78); AST/SGOT 60 U/L (15-37); Albumin 3.7 g/dL (3.4-5.0); Alkaline Phosphatase 82 U/L (45-117); BUN Blood Urea Nitrogen 10 mg/dL (7-18); Bicarbonate 28 mmol/L (21-32); Bilirubin Direct 0.4 mg/dL (0-0.2); Bilirubin Total 1.1 mg/dL (0.2-1.0); Glucose Level 107 mg/dL (74-106); Lipase 44 U/L (73-393); Magnesium 1.7 mg/dL (1.8-2.4); NT PRO-BNP 40 pg/mL (<125); Potassium 3.4 mmol/L (3.5-5.1); Protein, Total 7.5 g/dL (6.4-8.2); Sodium Level 141 mmol/L (136-145); Troponin (Emerg Dept Use Only) < 0.02 ng/mL (0.0-0.045)
[2020-10-11] MEDS ORDERED: MAGNES/ALUMIN/SIMET 30ML UCUP ONE (04:23)
[2020-10-11] MEDS ORDERED: LIDOCAINE VISCOUS 2% SOLN 15 ML UDC ONE (04:24)
--- NOTE | 2020-10-11 04:54 | EDPHYS ---
Physician Documentation [facility] Name: Rain Adams Age: 25 yrs Sex: Female : 1995 Arrival Date: 10/10/2020 Time: 23:59 Bed 14 Private MD: ED Physician Gamaliel Mcdaniel HPI: 10/11 00:25 This 25 yrs old Female presents to ER via Ambulatory with complaints of cp Abdominal Pain, Back Pain, Chest Pain. 00:25 The patient or guardian reports chest pain that is located primarily in the anterior cp chest wall. 00:25 The patient presents with pain that is acute, with no known mechanism of injury. cp 00:25 The symptoms are located in the left subscapular area, right subscapular area and mid cp back area. Onset: The symptoms/episode began/occurred today, at 23:15. The pain radiates to the chest and epigastric area. Associated signs and symptoms: Pertinent negatives: constipation, fever, hematuria, urinary retention, vomiting, weakness. The problem was sustained from unknown cause. Severity of symptoms: in the emergency department the symptoms have improved, mildly. Associated signs and symptoms: Pertinent negatives: cough, lower extremity pain, lower extremity swelling, palpitations, shortness of breath, syncope. 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 - Social history:: Smoking status: Reported history of juuling and/or vaping. ROS: 00:30 Back: Positive for pain at rest, pain with movement, of the left subscapular area, cp right subscapular area and mid back area. 00:30 Cardiovascular: Positive for chest pain, Negative for edema, palpitations. cp 00:30 Abdomen/GI: Positive for abdominal pain, of the epigastric area. Exam: 00:35 Constitutional: The patient appears in no acute distress, alert, awake, cp non-diaphoretic, non-toxic, well developed, well nourished, obese. 00:35 Head/Face: Normocephalic, atraumatic. cp 00:35 Eyes: Periorbital structures: appear normal, Conjunctiva: normal, no exudate, no cp injection, Sclera: no appreciated abnormality, Lids and lashes: appear normal, bilaterally. 00:35 ENT: External ear(s): are unremarkable, Nose: is normal, Mouth: Lips: moist, Oral cp mucosa: moist, Posterior pharynx: Airway: no evidence of obstruction, patent. 00:35 Chest/axilla: Inspection: normal, Palpation: is normal, no crepitus, no tenderness. 00:35 Cardiovascular: Rate: normal, Rhythm: regular. 00:35 Respiratory: the patient does not display signs of respiratory distress, Respirations: normal, no use of accessory muscles, no retractions, labored breathing, is not present, Breath sounds: are clear throughout, no decreased breath sounds, no stridor, no wheezing. 00:35 Abdomen/GI: Inspection: abdomen appears normal, Bowel sounds: active, all quadrants, Palpation: soft, in all quadrants, mild abdominal tenderness, in the epigastric area and right upper quadrant, rebound tenderness, is not appreciated, involuntary guarding, is not appreciated. 00:35 Back: pain, that is mild, of the left subscapular area, right subscapular area and mid back area, ROM is normal. 00:35 Musculoskeletal/extremity: DVT Exam: No signs of deep vein thrombosis. 00:35 Neuro: Orientation: to person, place \T\ time. Mentation: is normal, Motor: moves all fours, strength is normal. Vital Signs: 00:09 BP 126 / 67; Pulse 83; Resp 16 S; Temp 98(O); Pulse Ox 100% on R/A; Weight 113.85 kg bb (R); Height 5 ft. 6 in. (167.64 cm) (R); Pain 6/10; 01:25 BP 110 / 61; Pulse 71; Resp 16 S; Pulse Ox 99% on R/A; ad5 02:28 BP 108 / 72; Pulse 68; Resp 16 S; Pulse Ox 99% on R/A; ad5 03:35 Pulse 73; Resp 16 S; Pulse Ox 100% on R/A; ad5 05:07 BP 105 / 63; Pulse 68; Resp 16 S; Pulse Ox 100% on R/A; bb 00:09 Body Mass Index 40.51 (113.85 kg, 167.64 cm) bb MDM: 00:17 Patient medically screened. cp 01:00 Differential diagnosis: acute pericarditis, cholecystitis, Cholelithiasis cp costochondritis, Basilar Pneumonia Cholelithiasis pericarditis, pleurisy, pneumonia, pneumothorax, pulmonary embolus, pancreatitis. 04:00 ED course: Patient has shown improvement since arrival. Still waiting on results of rn blood and CAT scan.. 04:52 Data reviewed: vital signs, nurses notes, lab test result(s), radiologic studies, CT rn scan, and as a result, I will discharge patient. Counseling: I had a detailed discussion with the patient and/or guardian regarding: the historical points, exam findings, and any diagnostic results supporting the discharge/admit diagnosis, lab results, radiology results, the need for outpatient follow up, to return to the emergency department if symptoms worsen or persist or if there are any questions or concerns that arise at home. Response to treatment: the patient's symptoms have markedly improved after treatment, and as a result, I will discharge patient. Special discussion: Based on the patient's Hx, exam, and Dx evaluation, there is no indication for emergent surgery or inpatient Tx. It is understood by the patient/guardian that if the Sx's persist or worsen they need to return immediately for re-evaluation. I discussed with the patient/guardian in detail that at this point there is no indication for admission to the hospital. It is understood, however, that if the symptoms persist or worsen the patient needs to return immediately for re-evaluation. ED course: No acute findings on CT abdomen and pelvis. Normal vitals. Patient feels better. Will DC home with return precautions and GI follow-up along with antacid medication. 10/11 00:19 Order name: Basic Metabolic Panel; Complete Time: 01:10 cp 10/11 01:10 Interpretation: Normal except: CL 108; K 3.4; GLUC 107; GFR 79. cp 10/11 00:19 Order name: CBC with Diff; Complete Time: 01:10 cp 10/11 01:10 Interpretation: Normal except: WBC 11.10; MCV 88.8. cp 10/11 00:19 Order name: LFT's; Complete Time: 01:10 cp 10/11 02:42 Interpretation: Normal except: AST 60; BILIT 1.1; BILID 0.4; GLOB 3.8; A/G 1.0. cp 10/11 00:19 Order name: Magnesium; Complete Time: 01:10 cp 10/11 00:19 Order name: NT PRO-BNP; Complete Time: 01:10 cp 10/11 00:19 Order name: PT-INR; Complete Time: 01:10 cp 10/11 00:19 Order name: Troponin (emerg Dept Use Only); Complete Time: 01:10 cp 10/11 00:19 Order name: XRAY Chest (1 view); Complete Time: 02:42 cp 10/11 00:19 Order name: Lipase; Complete Time: 01:10 cp 10/11 00:19 Order name: D-Dimer; Complete Time: 01:10 cp 10/11 00:39 Order name: Urine Dipstick-Ancillary; Complete Time: 01:10 EDMS 10/11 00:39 Order name: Urine --Ancillary (enter results); Complete Time: 01:10 mw2 10/11 00:19 Order name: EKG; Complete Time: 00:20 cp 10/11 00:19 Order name: Cardiac monitoring; Complete Time: 00:41 cp 10/11 00:19 Order name: EKG - Nurse/Tech; Complete Time: 00:41 cp 10/11 00:19 Order name: IV Saline Lock; Complete Time: 00:36 cp 10/11 00:19 Order name: Labs collected and sent; Complete Time: 00:36 cp 10/11 00:19 Order name: O2 Per Protocol; Complete Time: 00:36 cp 10/11 00:19 Order name: O2 Sat Monitoring; Complete Time: 00:36 cp 10/11 00:19 Order name: Urine Dipstick-Ancillary (obtain specimen); Complete Time: 00:39 cp 10/11 00:19 Order name: Urine Test (obtain specimen); Complete Time: 00:39 cp Administered Medications: 00:38 Drug: NS 0.9% 500 ml Route: IV; Rate: bolus; Site: right antecubital; ad5 02:29 Follow up: IV Status: Completed infusion; IV Intake: 500ml ad5 00:39 Drug: Ketorolac 15 mg Route: IVP; Site: right antecubital; ad5 01:26 Follow up: Response: No adverse reaction ad5 04:03 Drug: GI Cocktail without - (Maalox Suspension 30 ml, Lidocaine Liquid 2 % 15 ad5 ml) Route: PO; 05:08 Follow up: Response: No adverse reaction derek Disposition: 05:43 Co-signature as Attending Physician, Gamaliel Mcdaniel MD I agree with the assessment and rn plan of care. 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 HPI: 25-year-old female with abdominal pain chest pain back pain. Similar episodes in the past. No known gallstone problems My personal exam of patient reveals: Soft positive mild epigastric tenderness, negative Humphrey I agree with assessment and care plan and confirm the diagnosis (es) above. 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
--- NOTE | 2020-10-11 04:54 | ER ---
Nurse's Notes [facility] Name: Rain Adams Age: 25 yrs Sex: Female : 1995 Arrival Date: 10/10/2020 Time: 23:59 Bed 14 Private MD: Diagnosis: Gastritis, unspecified, without bleeding;Abdominal pain, unspecified Presentation: 10/11 00:09 Chief complaint: Patient states: around 2315 she started having back pain which bb radiates to her chest along with upper abdominal pain denies vomiting, diarrhea, fever. Coronavirus screen: At this time, the client does not indicate any symptoms associated with coronavirus-19. Ebola Screen: No symptoms or risks identified at this time. Initial Sepsis Screen: Does the patient meet any 2 criteria? No. Patient's initial sepsis screen is negative. Does the patient have a suspected source of infection? No. Patient's initial sepsis screen is negative. Risk Assessment: Do you want to hurt yourself or someone else? Patient reports no desire to harm self or others. Onset of symptoms was October 10, 2020. 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 - Social history:: Smoking status: Reported history of juuling and/or vaping. Screenin:40 Abuse screen: Denies threats or abuse. Denies injuries from another. Nutritional ad5 screening: No deficits noted. Tuberculosis screening: No symptoms or risk factors identified. Fall Risk None identified. Assessment: 00:39 General: Appears in no apparent distress. Behavior is calm, cooperative, appropriate ad5 for age. Pain: Complains of pain in chest, upper/mid back, epigastric. Neuro: No deficits noted. Level of Consciousness is awake, alert, obeys commands, Oriented to person, place, time, situation, Appropriate for age. Cardiovascular: Reports chest pain, Heart tones present Capillary refill < 3 seconds Patient's skin is warm and dry. Rhythm is regular. Respiratory: No deficits noted. Airway is patent Respiratory effort is even, unlabored, Respiratory pattern is regular, symmetrical, Breath sounds are clear bilaterally. GI: Bowel sounds present X 4 quads. Abd is soft and non tender X 4 quads. Reports upper abdominal pain. : No deficits noted. No signs and/or symptoms were reported regarding the genitourinary system. Derm: Skin is pink, warm \T\ dry. 01:25 Reassessment: Patient appears in no apparent distress at this time. Patient and/or ad5 family updated on plan of care and expected duration. Pain level reassessed. Patient is alert, oriented x 3, equal unlabored respirations, skin warm/dry/pink. Patient states feeling better. 02:28 Reassessment: Patient appears in no apparent distress at this time. No changes from ad5 previously documented assessment. Patient and/or family updated on plan of care and expected duration. Pain level reassessed. 03:35 Reassessment: Patient appears in no apparent distress at this time. Patient and/or ad5 family updated on plan of care and expected duration. Pain level reassessed. Patient is alert, oriented x 3, equal unlabored respirations, skin warm/dry/pink. 05:06 Reassessment: Patient is alert, oriented x 3, equal unlabored respirations, skin bb warm/dry/pink. pt verbalized understanding of and agrees to plan of care discharge instructions given pt ambulated with steady gait to exit Patient states feeling better. Vital Signs: 00:09 BP 126 / 67; Pulse 83; Resp 16 S; Temp 98(O); Pulse Ox 100% on R/A; Weight 113.85 kg bb (R); Height 5 ft. 6 in. (167.64 cm) (R); Pain 6/10; 01:25 BP 110 / 61; Pulse 71; Resp 16 S; Pulse Ox 99% on R/A; ad5 02:28 BP 108 / 72; Pulse 68; Resp 16 S; Pulse Ox 99% on R/A; ad5 03:35 Pulse 73; Resp 16 S; Pulse Ox 100% on R/A; ad5 05:07 BP 105 / 63; Pulse 68; Resp 16 S; Pulse Ox 100% on R/A; bb 00:09 Body Mass Index 40.51 (113.85 kg, 167.64 cm) bb ED Course: 10/10 23:59 Patient arrived in ED. es 10/11 00:02 Td Silverio PA is PHCP. cp 00:02 Gamaliel Mcdaniel MD is Attending Physician. cp 00:03 Sravan Barth is Primary Nurse. ad5 00:08 EKG completed in triage. Results shown to MD. bb 00:12 Triage completed. bb 00:12 Arm band placed on Patient placed in an exam room, on a stretcher, on pulse oximetry. bb 00:30 Initial lab(s) drawn, by me, sent to lab. EKG done, by ED staff, reviewed by Gamaliel Mcdaniel MD. Inserted saline lock: 20 gauge in right antecubital area, using aseptic technique. Blood collected. 01:26 XRAY Chest (1 view) Sent. ad5 04:53 Fito Alamo MD is Referral Physician. rn 05:08 No provider procedures requiring assistance completed. IV discontinued, intact, bb bleeding controlled, No redness/swelling at site. Pressure dressing applied. 05:09 Patient has correct armband on for positive identification. bb Administered Medications: 00:38 Drug: NS 0.9% 500 ml Route: IV; Rate: bolus; Site: right antecubital; ad5 02:29 Follow up: IV Status: Completed infusion; IV Intake: 500ml ad5 00:39 Drug: Ketorolac 15 mg Route: IVP; Site: right antecubital; ad5 01:26 Follow up: Response: No adverse reaction ad5 04:03 Drug: GI Cocktail without - (Maalox Suspension 30 ml, Lidocaine Liquid 2 % 15 ad5 ml) Route: PO; 05:08 Follow up: Response: No adverse reaction bb Intake: 02:29 IV: 500ml; Total: 500ml. ad5 Outcome: 04:53 Discharge ordered by MD. rn 05:08 Discharged to home ambulatory. bb 05:08 Condition: stable 05:08 Discharge instructions given to patient, Instructed on discharge instructions, follow up and referral plans. medication usage, Demonstrated understanding of instructions, follow-up care, medications, Prescriptions given X 1. 05:09 Patient left the ED. bb Signatures: Ashley Che Brenda RN RN bb Gamaliel Mcdaniel MD MD rn Page, Corey, PA PA cp Sravan Barth ad5
[2020-10-11 07:19] VITALS: TEMP 98
[2020-10-11 07:23] VITALS: O2SAT 100
[2020-10-11 07:25] VITALS: BP 105/63
--- NOTE | 2020-10-11 07:56 | RAD REPORT ---
EXAM DESCRIPTION: Ajay Single View10/11/2020 7:19 am CLINICAL HISTORY: Chest pain COMPARISON: none FINDINGS: The lungs appear clear of acute infiltrate. The heart is normal size IMPRESSION: No acute abnormalities displayed
--- NOTE | 2020-10-11 09:50 | RAD REPORT ---
EXAM DESCRIPTION: CT - Abdomen Pelvis W Contrast - 10/11/2020 7:27 am CLINICAL HISTORY: ABD PAIN. 100ML ISOVUE 300 COMPARISON: None Available. TECHNIQUE: CT of the abdomen and pelvis performed following IV administration of 100 mL Isovue-300 . This exam was performed according to our departmental dose-optimization program, which includes aut omated exposure control, adjustment of the mA and/or kV according to patient size and/or use of itera tive reconstruction technique. FINDINGS: Lung Bases: The visualized lung bases are clear. Bones: No destructive bone lesions identified. Abdomen: Liver: The liver has normal size and density. No intrahepatic biliary dilatation. Small hypodensities in the liver likely represent cysts. The largest measures 2.2 cm. Gallbladder: No calcified gallstones. Spleen, Pancreas, and Adrenal Glands: The spleen, pancreas, and adrenal glands are unremarkable. Kidneys: No hydronephrosis or obstructing calculus. Vasculature: The aorta and IVC have normal caliber and position. The portal vein is patent. The pro ximal visceral and renal arteries are patent. Stomach: The stomach and duodenum have normal course. Other: No free intraperitoneal air. Trace free fluid. Pelvis: Bladder: Urinary bladder is unremarkable. Bowel: No dilated loops of large or small bowel. Appendix: Normal appendix. Pelvis: 2.0 cm left ovarian corpus luteal cyst. IMPRESSION: 1. No acute inflammatory or obstructive process identified. 2. 2.0 cm left ovarian corpus luteal cyst. No follow-up imaging is recommended. Reference: J Am Col l Radiol 2013;10:675-681 3. Trace free pelvic fluid. This may be physiologic. Electronically signed by: Saqib Ho 10/11/2020 4:42 AM CDT Due to temporary technical issues with the PACS/Fluency reporting system, reports are being signed by the in house radiologist without review as a courtesy to ensure prompt reporting. The interpreting r adiologist is fully responsible for the content of the report.
--- NOTE | 2020-10-11 10:41 | EKG ---
Test Date: 2020-10-11 Test Time: 00:07:26 Ore Grader: SREEKANTH MEASUREMENT RESULTS: Intervals: Rate: 83 ME: 154 QRSD: 88 QT: 364 QTc: 427 Irene: P: 57 ME: 154 QRS: 40 T: 20 INTERPRETIVE STATEMENTS: Normal sinus rhythm with sinus arrhythmia Normal ECG No previous ECG available for comparison Electronically Signed On 10-11-20 10:41:04 CDT by Jose Stubbs
== END 2020-10-11 05:09 | disposition home or self-care (01) ==
LOC: ER 23:53
DX: K29.70 Gastritis, unspecified, without bleeding (principal); R07.89 Other chest pain; Z88.5 Allergy status to narcotic agent
CPT/HCPCS: 96361; 93005; 85025; 80048; 36415; 83735; 81025; 85610; 85379; 80076; 81003; 84484; 83690; 83880; 74177; 71045; 96374; 99284; Q9967; J7040

== ENCOUNTER 2023-08-31 20:15 | Emergency (ER) | payer OTHER, SELFPAY ==
--- OUTSIDE RECORDS SUMMARY | 2023-08-31 20:21 | XMS REPORT | Continuity of Care Document ---
Author Name Unknown Address [address] [facility] [address] [place] [address] [facility] Address [address] [facility] [address] [place] [address] Care Team Providers Care Administrative Program Specialist Name Role Phone Pcp, Patient Does Not Have A Primary Care Physic salome Arjun Quintanilla Attending Clinician UnavailABI Christopher Attending Clinician Unavailable Meggan Sanderson PA-C Attending Clinician [phone] MEGGAN SANDERSON Attending Clinician Unavailable Abi Rangel MD Attending Clinician [phone] ALEJANDRA ROMERO Attending Clinician ALEJANDRA Fleming Attending Clinician YAS Steven Attending Clinician Unavailable Yas Das MD Attending Clinician [phone] Doctor Unassigned, [place] Attending Clinician Kaykay Isaacs NP, Caroline Attending Clinician [phone] CAROLINE ISAACS Attending Clinician Unavailrekha calvillo 2, [facility] Attending Clinician Unavailable Ultrasound, [facility] Attending Clinician UnavailAbelardo Marie MD Attending Clinician [phone] ABELARDO NEVES Attending Clinician Unavailable 1, [facility] Usg Room Attending Clinician UnavailLila Paul MD Attending Clinician [phone] LILA GUAJARDO Attending Clinician Unavailable LILA GUAJARDO Attending Clinician Unavailable Elise Mahmood MD Attending Clinician [phone] ELISE MAHMOOD Attending Clinician Unavailabl e Pob, [facility] Main Attending Clinician Unavailabl e Lab, [facility] I Attending Clinician UnavailGeorgia Argueta PA-C Attending Clinician [phone] GEORGIA MATTA Attending Clinician Unavailable Bibi Redding MD Attending Clinician [phone] BIBI REDDING Attending Clinician Unavailable ABI RANGEL Admitting Clinician Unavailable Arjun Quintanilla Admitting Clinician UnavailAbi Christopher MD Admitting Clinician [phone] ALEJANDRA ROMERO Admitting Clinician YAS Steven Admitting Clinician Unavailable Yas Das MD Admitting Clinician [phone] ELISE MAHMOOD Admitting Clinician UnavailBibi Jensen MD Admitting Clinician [phone] Payers Payer Name Policy Type Policy Number Effective Date Expirati on Date Source [facility] [id number] 2019 00:00:00 Problems Condition Name Condition Details Condition Category Status Onset Date Resolution Date Last Treatment Date Treating Clinician Comments Source depression depression Disease Active 12 00:00: 00 [facility] 39 weeks gestation of 39 weeks gestation of Disease Active 04-05 00:00: 00 [facility] Encounter for induction of labor Encounter for induction of labor Disease Active 04-05 00:00: 00 [facility] Liveborn infant, of mata , born in hospital by vaginal delivery Liveborn , of mata , born in hospital by vaginal delivery Disease Active 1-13 00:00: 00 [facility] Vaginal discharge Vaginal discharge Disease Active 2021-03 00:00: 00 [facility] Edema during , antepartum Edema during , antepartum Disease Active 2021-03 00:00: 00 [facility] Obesity in , antepartum Obesity in , antepartum Disease Active 2021-03 00:00: 00 [facility] Supervisio n of high risk in second trimester Supervisio n of high risk in second trimester Disease Active 8- 00:00: 00 [facility] Obesity (BMI 30-39.9) Obesity (BMI 30-39.9) Disease Active -24 00:00: 00 [facility] Supervisio n of high risk , antepartum Supervisio n of high risk , antepartum Disease Active 6- 00:00: 00 [facility] Allergies, Adverse Reactions, Alerts Allergy Name Allergy Type Status Severity Reaction(s) Onset Date Inactive Date Treating Clinician Comments Source HYDROCOD ONE-ACET AMINOPHE N DRUG Active Med Hives 6-05 00:00: 00 [facility] Hydrocod one-Acet aminophe n Propensi ty to adverse reaction s Active Hives 6-05 00:00: 00 [facility] hydrocod one DA Active SV 0 8-15 00:00: 00 [facility] acetamin ophen DA Active SV 2018-0 8-15 00:00: 00 [facility] hydrocod one DA Active SV RASH 2018-0 8-15 00:00: 00 [facility] acetamin ophen DA Active SV RASH 2018-0 8-15 00:00: 00 [facility] Social History Social Habit Start Date Stop Date Quantity Comments Source ASSERTION 2021-07-13 00:00:00 [facility] Exposure to SARS-CoV-2 (event) 2022-06-16 00:00:00 2022-06-26 14:33:00 Not sure [facility] History of Social function 2022-06-26 00:00:00 2022-06-26 00:00:00 [facility] Alcohol intake 2021-09-18 00:00:00 2021-09-18 00:00:00 Ex-drinker (finding) [facility] Tobacco use and exposure 2019-08-27 00:00:00 2019-08-27 00:00:00 Smokeless tobacco non-user [facility] Sex Assigned At 1995 00:00:00 1995 00:00:00 [facility] Smoking Status Start Date Stop Date Source Never smoked tobacco [facility] Medications Ordered Medication Name Filled Medication Name Start Date Stop Date Current Medication? Ordering Clinician Indication Dosage Frequency Signature (SIG) Comments Components Source FLUoxetine 10 mg capsule 05-17 00:00: 00 Yes [id number] 10mg Take 1 capsule by mouth in the morning. [facility] FLUoxetine 10 mg capsule 05-03 00:00: 00 Yes [id number] 10mg Take 1 capsule by mouth in the morning. [facility] BABY ASPIRIN ORAL 04-06 09:47: 18 04-06 00:00 :00 No Take by mouth. [facility] vitamin w/FA tablet 04-06 00:00: 00 05-17 00:00 :00 No [id number] 1{tbl} Take 1 tablet by mouth in the morning. [facility] docusate 100 mg capsule 04-06 00:00: 00 05-17 00:00 :00 No [id number] 200mg Take 2 capsules by mouth once daily as needed for Constipati on. [facility] ferrous sulfate 325 mg (65 mg iron) tablet 04-06 00:00: 00 05-17 00:00 :00 No [id number] 325mg Take 1 tablet by mouth in the morning and 1 tablet in the evening. [facility] ibuprofen 600 mg tablet 04-06 00:00: 00 05-17 00:00 :00 No [id number] 600mg Take 1 tablet by mouth every 6 (six) hours as needed (Pain). Take with food or milk. [facility] rho(D) immune globulin (RHOGAM) syringe 300 mcg 04-05 14:08: 11 Yes 300ug 300 mcg, Intramuscu lar, ONCE, For 1 dose, Conditiona l, Routine [facility] ibuprofen (IBU) tablet 600 mg 04-05 13:55: 10 Yes 600mg 600 mg, Oral, Q6HPRN, Starting on Fri04/05/22 at 0755, Until Discontinu ed, Routine, Pain (scale 4-6) [facility] diphenhydrA MINE (BENADRYL) tablet 25 mg 04-05 13:55: 10 Yes 25mg 25 mg, Oral, Q6HPRN, Starting on Fri04/05/22 at 0755, Until Discontinu ed, Routine, Sleep, Itching [facility] ondansetron (ZOFRAN (PF)) injection 4 mg 04-05 13:55: 10 Yes 4mg 4 mg, Slow IV Push, Q8HPRN, Starting on Fri04/05/22 at 0755, Until Discontinu ed, Routine, Nausea and Vomiting (N/V) [facility] simethicone (GAS RELIEF (SIMETHICON E)) chewable tablet 160 mg 04-05 13:55: 10 Yes 160mg 160 mg, Oral, PC+HSPRN, Starting on Fri04/05/22 at 0755, Until Discontinu ed, Routine, Gas [facility] docusate (COLACE) capsule 200 mg 04-05 13:55: 10 Yes 200mg 200 mg, Oral, QDAILYPRN, Starting on Fri04/05/22 at 0755, Until Discontinu ed, Routine, Constipati on [facility] magnesium hydroxide (MILK OF MAGNESIA) 400 mg/5 mL suspension 30 mL 04-05 13:55: 09 Yes 30mL 30 mL, Oral, QDAILYPRN, Starting on Fri04/05/22 at 0755, Until Discontinu ed, Routine, Constipati on [facility] benzocaine- menthol (DERMOPLAST ) 20-0.5 % topical spray 04-05 13:55: 09 Yes Topical, PRN, Starting on Fri04/05/22 at 0755, Until Discontinu ed, Routine, Perineum discomfort [facility] oxytocin (PITOCIN) 30 units in NS 500 mL IV infusion 04-05 10:03: 53 04-05 14:08 :10 No 2mU/min at 2-40 mL/hr, IV Infusion, TITRATE, Starting on Fri04/05/22 at 0403, Until Fri04/05/22 at 0808, SHILA [facility] D5W-LR IV infusion 1,000 mL 04-05 10:03: 53 04-05 14:08 :10 No 1000mL at 1-125 mL/hr, IV Infusion, TITRATE, Starting on Fri04/05/22 at 0403, Until Fri04/05/22 at 0808, Routine [facility] BABY ASPIRIN ORAL 03-24 21:22: 06 Yes Take by mouth. [facility] BABY ASPIRIN ORAL 2021-03 01:55: 27 Yes Take by mouth. [facility] cephALEXin 500 mg capsule 2021-03 00:00: 00 03-20 05:59 :00 No [id number] 500mg Take 1 capsule by mouth in the morning and 1 capsule in the evening. Do all this for 7 days. [facility] metroNIDAZO LE 500 mg tablet 2021-03 00:00: 00 03-04 05:59 :00 No [id number] 500mg Take 1 tablet by mouth every 12 (twelve) hours for 7 days. [facility] BABY ASPIRIN ORAL 2021-03 16:22: 24 Yes Take by mouth. [facility] vit no.124/iron /folic ( VITAMIN ORAL) 2021-03 15:51: 43 Yes 1{tbl} Take 1 tablet by mouth. [facility] BABY ASPIRIN ORAL 9-16 13:56: 26 Yes Take by mouth. [facility] No known medications 02 14:41: 42 No No known medication s [facility] butalbital- acetaminoph en-caff (ESGIC) 50-325-40 mg tablet 10-12 00:00: 00 03-21 00:00 :00 No [id number] 1{tbl} Take 1 tablet by mouth every 4 (four) hours as needed (Headaches ). [facility] Nitrofurant oin&Nit. Macrocryst (MACROBID) 100 mg capsule 10-09 00:00: 00 10-23 00:00 :00 No [id number] 100mg Take 1 capsule by mouth in the morning and 1 capsule in the evening. [facility] BABY ASPIRIN ORAL 10-04 15:33: 55 Yes Take by mouth. [facility] Immunizations Ordered Immunization Name Filled Immunization Name Date Status Comments Source TDAP 2022-01-17 00:00:00 Completed [facility] TDAP 2022-01-17 00:00:00 Completed [facility] TDAP 2022-01-17 00:00:00 Completed [facility] TDAP 2022-01-17 00:00:00 Completed [facility] TDAP 2022-01-17 00:00:00 Completed [facility] TDAP 2022-01-17 00:00:00 Completed [facility] TDAP 2022-01-17 00:00:00 Completed [facility] TDAP 2022-01-17 00:00:00 Completed [facility] TDAP 2022-01-17 00:00:00 Completed [facility] TDAP 2022-01-17 00:00:00 Completed [facility] TDAP 2022-01-17 00:00:00 Completed [facility] TDAP 2022-01-17 00:00:00 Completed [facility] TDAP 2022-01-17 00:00:00 Completed [facility] TDAP 2022-01-17 00:00:00 Completed [facility] TDAP 2022-01-17 00:00:00 Completed [facility] TDAP 2022-01-17 00:00:00 Completed [facility] TDAP 2022-01-17 00:00:00 Completed [facility] TDAP 2022-01-17 00:00:00 Completed [facility] TDAP 2022-01-17 00:00:00 Completed [facility] TDAP 2022-01-17 00:00:00 Completed [facility] TDAP 2022-01-17 00:00:00 Completed [facility] TDAP 2022-01-17 00:00:00 Completed [facility] TDAP 2022-01-17 00:00:00 Completed [facility] TDAP 2022-01-17 00:00:00 Completed [facility] TDAP 2022-01-17 00:00:00 Completed [facility] TDAP 2022-01-17 00:00:00 Completed [facility] TDAP 2022-01-17 00:00:00 Completed [facility] MMR 2019-09-10 00:00:00 Completed [facility] MMR 2019-09-10 00:00:00 Completed [facility] MMR 2019-09-10 00:00:00 Completed [facility] MMR 2019-09-10 00:00:00 Completed [facility] MMR 2019-09-10 00:00:00 Completed [facility] MMR 2019-09-10 00:00:00 Completed [facility] MMR 2019-09-10 00:00:00 Completed [facility] MMR 2019-09-10 00:00:00 Completed [facility] MMR 2019-09-10 00:00:00 Completed [facility] MMR 2019-09-10 00:00:00 Completed [facility] MMR 2019-09-10 00:00:00 Completed [facility] MMR 2019-09-10 00:00:00 Completed [facility] MMR 2019-09-10 00:00:00 Completed [facility] MMR 2019-09-10 00:00:00 Completed [facility] MMR 2019-09-10 00:00:00 Completed [facility] MMR 2019-09-10 00:00:00 Completed [facility] MMR 2019-09-10 00:00:00 Completed [facility] MMR 2019-09-10 00:00:00 Completed [facility] MMR 2019-09-10 00:00:00 Completed [facility] MMR 2019-09-10 00:00:00 Completed [facility] MMR 2019-09-10 00:00:00 Completed [facility] MMR 2019-09-10 00:00:00 Completed [facility] MMR 2019-09-10 00:00:00 Completed [facility] MMR 2019-09-10 00:00:00 Completed [facility] MMR 2019-09-10 00:00:00 Completed [facility] MMR 2019-09-10 00:00:00 Completed [facility] MMR 2019-09-10 00:00:00 Completed [facility] MMR 2019-09-10 00:00:00 Completed [facility] MMR 2019-09-10 00:00:00 Completed [facility] MMR 2019-09-10 00:00:00 Completed [facility] MMR 2019-09-10 00:00:00 Completed [facility] MMR 2019-09-10 00:00:00 Completed [facility] MMR 2019-09-10 00:00:00 Completed [facility] MMR 2019-09-10 00:00:00 Completed [facility] MMR 2019-09-10 00:00:00 Completed [facility] MMR 2019-09-10 00:00:00 Completed [facility] MMR 2019-09-10 00:00:00 Completed [facility] MMR 2019-09-10 00:00:00 Completed [facility] MMR 2019-09-10 00:00:00 Completed [facility] MMR 2019-09-10 00:00:00 Completed [facility] MMR Unknown Completed [facility] TDAP Unknown Completed [facility] MMR Unknown Completed [facility] Vital Signs Vital Name Observation Time Observation Value Comments S ource Systolic blood pressure 2022-06-26 19:48:00 117 mm[Hg] [facility] Diastolic blood pressure 2022-06-26 19:48:00 77 mm[Hg] [facility] Heart rate 2022-06-26 19:48:00 73 /min [facility] Body temperature 2022-06-26 19:48:00 36.83 Raina [facility] Respiratory rate 2022-06-26 19:48:00 18 /min [facility] Body height 2022-06-26 19:48:00 165.1 cm Univ [facility] Body weight 2022-06-26 19:48:00 106.142 kg Univ [facility] BMI 2022-06-26 19:48:00 38.94 kg/m2 Univ [facility] Systolic blood pressure 2022-05-17 19:23:00 121 mm[Hg] [facility] Diastolic blood pressure 2022-05-17 19:23:00 61 mm[Hg] [facility] Heart rate 2022-05-17 19:23:00 73 /min [facility] Body temperature 2022-05-17 19:23:00 36.72 Raina [facility] Respiratory rate 2022-05-17 19:23:00 18 /min [facility] Body height 2022-05-17 19:23:00 165.1 cm Univ [facility] Body weight 2022-05-17 19:23:00 107.412 kg Univ [facility] BMI 2022-05-17 19:23:00 39.41 kg/m2 Univ [facility] Systolic blood pressure 2022-05-03 20:25:00 112 mm[Hg] [facility] Diastolic blood pressure 2022-05-03 20:25:00 75 mm[Hg] [facility] Heart rate 2022-05-03 20:25:00 70 /min [facility] Body temperature 2022-05-03 20:25:00 36.56 Raina [facility] Respiratory rate 2022-05-03 20:25:00 18 /min [facility] Body height 2022-05-03 20:25:00 165.1 cm Univ [facility] Body weight 2022-05-03 20:25:00 108.319 kg [facility] BMI 2022-05-03 20:25:00 39.74 kg/m2 [facility] Systolic blood pressure 2022-04-26 17:08:00 129 mm[Hg] [facility] Diastolic blood pressure 2022-04-26 17:08:00 85 mm[Hg] [facility] Heart rate 2022-04-26 17:08:00 75 [facility] Body temperature 2022-04-26 17:08:00 36.61 Raina [facility] Respiratory rate 2022-04-26 17:08:00 18 /min [facility] Body height 2022-04-26 17:08:00 165.1 cm [facility] Body weight 2022-04-26 17:08:00 107.049 kg [facility] BMI 2022-04-26 17:08:00 39.27 kg/m2 [facility] Systolic blood pressure 2022-04-06 14:15:00 123 mm[Hg] [facility] Diastolic blood pressure 2022-04-06 14:15:00 79 mm[Hg] [facility] Heart rate 2022-04-06 14:00:00 80 /min [facility] Body temperature 2022-04-06 14:00:00 36.78 Raina [facility] Respiratory rate 2022-04-06 14:00:00 17 /min [facility] Oxygen saturation in Arterial blood by Pulse oximetry 2022-04-05 14:30:00 99 /min [facility] Body height 2022-04-05 10:36:00 165.1 cm [facility] Body weight 2022-04-05 10:36:00 114.125 kg [facility] BMI 2022-04-05 10:36:00 41.87 kg/m2 [facility] Systolic blood pressure 2022-04-04 21:39:00 114 mm[Hg] [facility] Diastolic blood pressure 2022-04-04 21:39:00 74 mm[Hg] [facility] Heart rate 2022-04-04 21:39:00 83 /min [facility] Body temperature 2022-04-04 21:39:00 36.72 Raina [facility] Respiratory rate 2022-04-04 21:39:00 18 /min [facility] Body height 2022-04-04 21:39:00 165.1 cm Univ [facility] Body weight 2022-04-04 21:39:00 112.038 kg Univ [facility] BMI 2022-04-04 21:39:00 41.10 kg/m2 [facility] Systolic blood pressure 2022-03-28 20:24:00 110 mm[Hg] [facility] Diastolic blood pressure 2022-03-28 20:24:00 73 mm[Hg] [facility] Heart rate 2022-03-28 20:24:00 91 /min [facility] Body temperature 2022-03-28 20:24:00 36.61 Raina [facility] Respiratory rate 2022-03-28 20:24:00 18 /min [facility] Body height 2022-03-28 20:24:00 165.1 cm Univ [facility] Body weight 2022-03-28 20:24:00 114.216 kg [facility] BMI 2022-03-28 20:24:00 41.90 kg/m2 [facility] Systolic blood pressure 2022-03-25 01:10:00 113 mm[Hg] [facility] Diastolic blood pressure 2022-03-25 01:10:00 70 mm[Hg] [facility] Heart rate 2022-03-25 01:10:00 90 /min [facility] Body temperature 2022-03-25 01:10:00 37.06 Raina [facility] Respiratory rate 2022-03-25 01:10:00 18 /min [facility] Body height 2022-03-25 01:10:00 165.1 cm [facility] Body weight 2022-03-25 01:10:00 112.401 kg [facility] BMI 2022-03-25 01:10:00 41.24 kg/m2 [facility] Oxygen saturation in Arterial blood by Pulse oximetry 2022-03-25 01:10:00 98 /min [facility] Systolic blood pressure 2022-03-21 20:07:00 111 mm[Hg] [facility] Diastolic blood pressure 2022-03-21 20:07:00 73 mm[Hg] [facility] Heart rate 2022-03-21 20:07:00 101 /min [facility] Body temperature 2022-03-21 20:07:00 36.33 Raina [facility] Respiratory rate 2022-03-21 20:07:00 18 /min [facility] Body height 2022-03-21 20:07:00 166.4 cm Univ [facility] Body weight 2022-03-21 20:07:00 111.131 kg [facility] BMI 2022-03-21 20:07:00 40.15 kg/m2 [facility] Heart rate 2022-03-19 05:30:00 86 /min [facility] Oxygen saturation in Arterial blood by Pulse oximetry 2022-03-19 05:30:00 98 /min [facility] Systolic blood pressure 2022-03-19 04:19:00 121 mm[Hg] [facility] Diastolic blood pressure 2022-03-19 04:19:00 71 mm[Hg] [facility] Respiratory rate 2022-03-19 04:19:00 18 /min [facility] Body height 2022-03-19 04:19:00 167.6 cm Univ [facility] Body weight 2022-03-19 04:19:00 112.038 kg [facility] BMI 2022-03-19 04:19:00 39.87 kg/m2 [facility] Systolic blood pressure 2022-03-14 22:34:00 110 mm[Hg] [facility] Diastolic blood pressure 2022-03-14 22:34:00 75 mm[Hg] [facility] Heart rate 2022-03-14 22:34:00 80 /[facility] 2022-03-14 22:34:00 36.28 Raina [facility] Respiratory rate 2022-03-14 22:34:00 18 /min [facility] Body height 2022-03-14 22:34:00 [facility].6 [facility] Body weight 2022-03-14 22:34:00 111.403 [facility] BMI 2022-03-14 22:34:00 39.64 kg/m2 [facility] Systolic blood pressure 2022-03-07 21:02:00 114 mm[Hg] [facility] Diastolic blood pressure 2022-03-07 21:02:00 71 mm[Hg] [facility] Heart rate 2022-03-07 21:02:00 86 /min [facility] Body temperature 2022-03-07 21:02:00 36.67 Raina [facility] Respiratory rate 2022-03-07 21:02:00 17 /min [facility] Body height 2022-03-07 21:02:00 167.6 cm Univ [facility] Body weight 2022-03-07 21:02:00 111.676 kg Univ [facility] BMI 2022-03-07 21:02:00 39.74 kg/m2 [facility] Systolic blood pressure 2022-02-21 21:53:00 111 mm[Hg] [facility] Diastolic blood pressure 2022-02-21 21:53:00 72 mm[Hg] [facility] Heart rate 2022-02-21 21:53:00 77 /min [facility] Body temperature 2022-02-21 21:53:00 36.78 Raina [facility] Respiratory rate 2022-02-21 21:53:00 18 /min [facility] Body height 2022-02-21 21:53:00 167.[facility] Body weight 2022-02-21 21:53:00 109.317 [facility] BMI 2022-02-21 21:53:00 38.90 kg/m2 [facility] Systolic blood pressure 2022-02-18 22:30:00 104 mm[Hg] [facility] Diastolic blood pressure 2022-02-18 22:30:00 69 mm[Hg] [facility] Heart rate 2022-02-18 22:30:00 87 /min [facility] Body temperature 2022-02-18 22:30:00 36.39 Raina [facility] Respiratory rate 2022-02-18 22:30:00 16 /min [facility] Body height 2022-02-18 22:30:00 167.6 cm [facility] Body weight 2022-02-18 22:30:00 109.09 kg [facility] BMI 2022-02-18 22:30:00 38.82 kg/m2 [facility] Oxygen saturation in Arterial blood by Pulse oximetry 2022-02-18 22:30:00 98 /min [facility] Systolic blood pressure 2022-01-31 22:21:00 90 mm[Hg] [facility] Diastolic blood pressure 2022-01-31 22:21:00 57 mm[Hg] [facility] Heart rate 2022-01-31 22:21:00 75 /min [facility] Body temperature 2022-01-31 22:21:00 37.06 Raina [facility] Body height 2022-01-31 22:21:00 167.6 cm Univ [facility] Body weight 2022-01-31 22:21:00 107.412 kg [facility] BMI 2022-01-31 22:21:00 38.22 kg/m2 [facility] Systolic blood pressure 2022-01-17 20:18:00 108 mm[Hg] [facility] Diastolic blood pressure 2022-01-17 20:18:00 72 mm[Hg] [facility] Heart rate 2022-01-17 20:18:00 80 /min [facility] Body temperature 2022-01-17 20:18:00 36.44 Raina [facility] Respiratory rate 2022-01-17 20:18:00 18 /min [facility] Body height 2022-01-17 20:18:00 167.6 cm [facility] Body weight 2022-01-17 20:18:00 106.595 kg [facility] BMI 2022-01-17 20:18:00 37.93 kg/m2 [facility] Systolic blood pressure 2021-12-18 21:03:00 101 mm[Hg] [facility] Diastolic blood pressure 2021-12-18 21:03:00 68 mm[Hg] [facility] Heart rate 2021-12-18 21:03:00 78 /min [facility] Body temperature 2021-12-18 21:03:00 36.89 Raina [facility] Respiratory rate 2021-12-18 21:03:00 18 /min [facility] Body height 2021-12-18 21:03:00 167.6 cm [facility] Body weight 2021-12-18 21:03:00 106.595 kg [facility] BMI 2021-12-18 21:03:00 37.93 kg/m2 [facility] Heart rate 2021-12-07 18:30:00 70 /min [facility] Oxygen saturation in Arterial blood by Pulse oximetry 2021-12-07 18:30:00 100 /min [facility] Systolic blood pressure 2021-12-07 17:36:00 116 mm[Hg] [facility] Diastolic blood pressure 2021-12-07 17:36:00 65 mm[Hg] [facility] Body temperature 2021-12-07 17:01:00 36 Raina [facility] Respiratory rate 2021-12-07 17:01:00 18 /min [facility] Body height 2021-12-07 17:01:00 167.6 cm [facility] Body weight 2021-12-07 17:01:00 104.327 kg [facility] BMI 2021-12-07 17:01:00 37.12 kg/m2 [facility] Systolic blood pressure 2021-11-20 21:01:00 105 mm[Hg] [facility] Diastolic blood pressure 2021-11-20 21:01:00 70 mm[Hg] [facility] Heart rate 2021-11-20 21:01:00 78 /min [facility] Body temperature 2021-11-20 21:01:00 36.72 Raina [facility] Respiratory rate 2021-11-20 21:01:00 18 /min [facility] Body height 2021-11-20 21:01:00 167.6 cm [facility] Body weight 2021-11-20 21:01:00 104.962 kg [facility] BMI 2021-11-20 21:01:00 37.35 kg/m2 [facility] Systolic blood pressure 2021-10-23 19:00:00 98 mm[Hg] [facility] Diastolic blood pressure 2021-10-23 19:00:00 56 mm[Hg] [facility] Heart rate 2021-10-23 19:00:00 73 /min [facility] Body temperature 2021-10-23 19:00:00 36.72 Raina [facility] Respiratory rate 2021-10-23 19:00:00 18 /min [facility] Body height 2021-10-23 19:00:00 167.6 cm [facility] Body weight 2021-10-23 19:00:00 105.235 kg [facility] BMI 2021-10-23 19:00:00 37.45 kg/m2 [facility] Systolic blood pressure 2021-10-12 19:48:00 107 mm[Hg] [facility] Diastolic blood pressure 2021-10-12 19:48:00 71 mm[Hg] [facility] Heart rate 2021-10-12 19:48:00 70 /min [facility] Body temperature 2021-10-12 19:48:00 36.72 Raina [facility] Respiratory rate 2021-10-12 19:48:00 18 /min [facility] Body height 2021-10-12 19:48:00 165.1 cm [facility] Body weight 2021-10-12 19:48:00 105.053 kg [facility] BMI 2021-10-12 19:48:00 38.54 kg/m2 [facility] Procedures Procedure Date / Time Performed Performing Clinician Source CBC WITH DIFF 2022-04-06 10:18:00 Adum, Abi Brionese [facility] CBC WITH DIFF 2022-04-05 10:25:00 Adum, Abi Olguin [facility] HEPATITIS B SURFACE ANTIGEN 2022-04-05 10:25:00 Adum, Abi Kincaid [facility] ADC OR MARY ONLY - RPR 2022-04-05 10:25:00 Adum, Bea Kincaid [facility] HIV 1/2 AG-AB WITH REFLEX 2022-04-05 10:25:00 Adum, Bea Kincaid [facility] HB ABO GROUPING 2022-04-05 10:20:00 Adum, Abi Padgett [facility] RHO (D) IMMUNE GLOBULIN 2022-04-05 10:20:00 Adum, Celsa Kincaid [facility] POCT URINALYSIS W/O SPECIFIC GRAVITY 2022-04-04 21:47:00 Adum, Abi Kincaid [facility] POCT URINALYSIS W/O SPECIFIC GRAVITY 2022-03-28 20:26:00 Adum, Abi Kincaid [facility] URINALYSIS 2022-03-25 02:15:00 Alejandra Romero [facility] CONSENT/REFUSAL FOR DIAGNOSIS AND TREATMENT 2022-03-25 01:00:06 Doctor Unassigned, [place] [facility] POCT URINALYSIS W/O SPECIFIC GRAVITY 2022-03-21 00:00:00 Adum, Abi Kincaid [facility] ADC ONLY - FERN TEST 2022-03-19 04:31:00 Yas Das [facility] CONSENT/REFUSAL FOR DIAGNOSIS AND TREATMENT 2022-03-19 04:02:44 Doctor Unassigned, [place] [facility] POCT URINALYSIS W/O SPECIFIC GRAVITY 2022-03-14 00:00:00 Adum, Abi Kincaid [facility] DISABILITY/FMLA 2022-03-07 06:01:00 Doctor Unass igned, [place] [facility] POCT URINALYSIS W/O SPECIFIC GRAVITY 2022-03-07 00:00:00 Adum, Abi Kincaid [facility] POCT URINALYSIS W/O SPECIFIC GRAVITY 2022-02-21 00:00:00 Adum, Abi Kincaid [facility] POCT URINALYSIS W/O SPECIFIC GRAVITY 2022-02-18 00:00:00 Caroline Isaacs [facility] POCT URINALYSIS W/O SPECIFIC GRAVITY 2022-01-31 00:00:00 Meggan Sanderson [facility] TDAP VACCINE, >11 YRS, IM 2022-01-17 20:49:14 Adum, Bea Kincaid [facility] POCT URINALYSIS W/O SPECIFIC GRAVITY 2022-01-17 00:00:00 Yas Das [facility] POCT URINALYSIS W/O SPECIFIC GRAVITY 2021-12-18 00:00:00 Adum, bAi Kincaid [facility] ADC CLC OR LCC ONLY - WET PREP 2021-12-07 17:45:00 Adum, Abi Kincaid [facility] CONSENT/REFUSAL FOR DIAGNOSIS AND TREATMENT 2021-12-07 16:56:34 Doctor Unassigned, [place] [facility] L&D VISIT (NON-DELIVERED) 2021-12-07 05:01:00 Do ctor Unassigned, [place] [facility] POCT URINALYSIS W/O SPECIFIC GRAVITY 2021-11-20 00:00:00 Adum, Abi Kincaid [facility] SECOND AND THIRD TRIMESTER ULTRASOUND 2021-11-16 17:51:00 Adum, Abi Kincaid [facility] POCT URINALYSIS W/O SPECIFIC GRAVITY 2021-10-23 19:08:00 Adum, Abi Kincaid [facility] POCT URINALYSIS W/O SPECIFIC GRAVITY 2021-10-12 19:54:00 Adum, Abi Kincaid [facility] INSURANCE CORRESPONDENCE 2021-10-11 05:01:00 Doc tor Unassigned, [place] [facility] SCANNED LAB RESULTS 2021-09-25 05:01:00 Doctor Kaykay goyal, [place] [facility] Encounters Start Date/Time End Date/Time Encounter Type Admission Type Attending Clinicians Care Facility Care Department Encounter ID Source 2021-01-19 01:21:22 Outpatient P [facility] SHAE [id number] [facility] 2019-07-27 13:49:00 Inpatient Arjun Quintanilla [facility] [id number] [facility] 2019-05-21 13:08:00 Inpatient [facility] [id number] [facility] 2022-06-26 14:45:00 2022-06-26 15:15:00 Office Visit Meggan Sanderson [facility] 1.2.840.114 350.1.13.10 4.2.7.2.686 [id number] 134 [id number] [facility] 2022-06-26 14:45:00 2022-06-26 14:45:00 Outpatient R KNI MEGGAN [facility] [id number] [facility] 2022-05-17 13:15:00 2022-05-17 13:30:00 Routine Visit AdAbi khan [facility] 1.2.840.114 350.1.13.10 4.2.7.2.686 [id number] 134 [id number] [facility] 2022-05-17 13:15:00 2022-05-17 13:15:00 Outpatient R ADABI KHAN [facility] [id number] [facility] 2022-05-03 14:45:00 2022-05-03 15:11:58 Outpatient R ADABI KHAN [facility] [id number] [facility] 2022-05-03 14:45:00 2022-05-03 15:11:58 Routine Visit AdAbi khan [facility] 1.2.840.114 350.1.13.10 4.2.7.2.686 [id number] 134 [id number] [facility] 2022-05-03 00:00:00 2022-05-03 00:00:00 Telephone Adum, Abi Kincaid [facility] 1.2.840.114 350.1.13.10 4.2.7.2.686 [id number] 134 [id number] [facility] 2022-04-26 10:45:00 2022-04-26 11:33:50 Routine Visit Adum, Abi Kincaid [facility] 1.2.840.114 350.1.13.10 4.2.7.2.686 [id number] [facility] 2022-04-26 10:45:00 2022-04-26 11:33:50 Outpatient R ADUM, ABI [facility] [id number] [facility] 2022-04-05 03:55:00 2022-04-06 12:55:00 Hospital Encounter Adum, Abi Kincaid [facility] 1.2.840.114 350.1.13.10 4.2.7.2.686 [id number] [facility] 2022-04-05 03:55:36 2022-04-05 03:57:00 Emergency X [facility] [id number] [facility] 2022-04-04 15:00:00 2022-04-04 16:03:59 Outpatient R ADUM, [facility] SHAE [id number] [facility] 2022-04-04 15:00:00 2022-04-04 16:03:59 Outpatient R ADUM, [facility] [id number] [facility] 2022-04-04 15:00:00 2022-04-04 16:03:59 Routine Visit Adum, Abi Kincaid [facility] BUILDING 1.2.840.114 350.1.13.10 4.2.7.2.686 [id number] 134 [id number] [facility] 2022-03-28 14:00:00 2022-03-28 14:47:47 Outpatient R ADABI KHAN [facility] [id number] [facility] 2022-03-28 14:00:00 2022-03-28 14:47:47 Routine Visit Adbill, Abi Kincaid [facility] BUILDING 1.2.840.114 350.1.13.10 4.2.7.2.686 [id number] 134 [id number] [facility] 2022-03-24 19:01:00 2022-03-24 21:17:00 Outpatient X LOVE-CHRIS S, ALEJANDRA LOVE-CHRIS S, ALEJANDRA [facility] SHAE [id number] [facility] 2022-03-24 19:01:00 2022-03-24 21:17:00 Emergency Love-Chris s, Alejandra [facility] 1.2.840.114 350.1.13.10 4.2.7.2.686 [id number] [facility] 2022-03-21 14:00:00 2022-03-21 14:35:32 Outpatient R ABI RANGEL [facility] [id number] [facility] 2022-03-21 14:00:00 2022-03-21 14:35:32 Routine Visit Adum, Abi [facility] 1.2.840.114 350.1.13.10 4.2.7.2.686 [id number] 134 [id number] [facility] 2022-03-18 22:10:00 2022-03-19 01:18:00 Outpatient X YAS DAS [facility] SH[facility] [id number] [facility] 2022-03-18 22:10:00 2022-03-19 01:18:00 Emergency Das, Yas Daniel [facility] 1.2.840.114 350.1.13.10 4.2.7.2.686 [id number] [facility] 2022-03-14 16:15:00 2022-03-14 16:52:12 Outpatient R ADUM, ABITHE [facility] [id number] [facility] 2022-03-14 16:15:00 2022-03-14 16:52:12 [facility] 1.2.840.114 350.1.13.10 4.2.7.2.686 [id number] 134 [id number] [facility] 2022-03-12 00:00:00 2022-03-12 00:00:00 Case Management Adum, [facility] BUILDING 1.2.840.114 350.1.13.10 4.2.7.2.686 [id number] 134 [id number] [facility] 2022-03-11 00:00:00 2022-03-11 00:00:00 Patient Secure Msg Adbill, [facility] BUILDING 1.2.840.114 350.1.13.10 4.2.7.2.686 [id number] 134 [id number] [facility] 2022-03-07 14:15:00 2022-03-07 14:30:00 [facility] 1.2.840.114 350.1.13.10 4.2.7.2.686 [id number] 134 [id number] [facility] 2022-03-07 14:15:00 2022-03-07 14:15:00 Outpatient R ADUM, [facility] [id number] [facility] 2022-03-07 13:00:00 2022-03-07 13:00:00 Outpatient R ANETTEABI KHAN [facility] [id number] [facility] 2022-03-07 00:00:00 2022-03-07 00:00:00 Orders Only Doctor Unassigned, [place] [facility] 1.84.114 350.1.13.10 4.2.7.2.686 [id number] [facility] 2022-02-24 00:00:00 2022-02-24 00:00:00 [facility] 1..114 350.1.13.10 4.2.7.2.686 [id number] 134 [id number] [facility] 2022-02-21 15:15:00 2022-02-21 16:29:13 Outpatient R ANETTEABI KHAN [facility] [id number] [facility] 2022-02-21 15:15:00 2022-02-21 16:29:13 Routine Visit Abi Rangel [facility] BUILD[facility] 1.840.114 350.1.13.10 4.2.7.2.686 [id number] 134 [id number] [facility] 2022-02-18 16:30:00 2022-02-18 16:50:31 Outpatient R SHITAL [facility] [id number] [facility] 2022-02-18 16:30:00 2022-02-18 16:50:31 Routine Visit Shital Caroline [facility] 1..114 350.1.13.10 4.2.7.2.686 [id number] 134 [id number] [facility] 2022-02-18 00:00:00 2022-02-18 00:00:00 Telephone Meggan Sanderson [facility] BUILDING 1.2.840.114 350.1.13.10 4.2.7.2.686 [id number] [facility] 2022-02-08 00:00:00 2022-02-08 00:00:00 Telephone Adum, Abi [facility] 1.2.840.114 350.1.13.10 4.2.7.2.686 [id number] 134 [id number] [facility] 2022-01-31 16:00:00 2022-01-31 16:30:57 Outpatient R ADBILL, ABI [facility] [id number] [facility] 2022-01-31 16:00:00 2022-01-31 16:30:57 Routine Visit Meggan Sanderson Adum, Abi Kincaid [facility] 1.2.840.114 350.1.13.10 4.2.7.2.686 [id number] 134 [id number] [facility] 2022-01-28 00:00:00 2022-01-28 00:00:00 Telephone Adum, Abi Kincaid [facility] 1.2.840.114 350.1.13.10 4.2.7.2.686 [id number] 134 [id number] [facility] 2022-01-17 15:30:00 2022-01-17 15:50:11 Routine Visit Adum, Abi Kincaid [facility] 1.2.840.114 350.1.13.10 4.2.7.2.686 [id number] 134 [id number] [facility] 2022-01-17 14:15:00 2022-01-17 14:30:00 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 Visit 2, Adc Lab Adum, Abi Kincaid [facility] 1.2.840.114 350.1.13.10 4.2.7.2.686 [id number] [facility] 2022-01-17 14:15:00 2022-01-17 14:15:00 Outpatient R ADUM, ABI [facility] [id number] [facility] 2021-12-18 16:00:00 2021-12-18 16:29:16 [facility] 1.840.114 350.1.13.10 4.2.7.2.686 [id number] 134 [id number] [facility] 2021-12-18 14:30:00 2021-12-18 15:15:00 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 Visit Ultrasound, Abelardo Aguilar [facility] 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 1.84.114 350.1.13.10 4.2.7.2.686 [id number] [facility] 2021-12-18 14:30:00 2021-12-18 14:51:59 Outpatient P ABELARDO NEVES [facility] [id number] [facility] 2021-12-07 12:02:00 2021-12-07 13:55:00 Outpatient X ADUM, ABI [facility] [id number] [facility] 2021-12-07 12:02:00 2021-12-07 13:55:00 Emergency Adum, Abi [facility] 1.840.114 350.1.13.10 4.2.7.2.686 [id number] [facility] 2021-11-20 15:30:00 2021-11-20 16:28:43 Outpatient R ADUM, ABITHE [facility] [id number] [facility] 2021-11-20 15:30:00 2021-11-20 16:28:43 Routine Visit Adum, [facility] 1.840.114 350.1.13.10 4.2.7.2.686 [id number] 134 [id number] [facility] 2021-11-16 10:45:00 2021-11-16 12:24:11 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 Visit 1, [facility] Us Rolly Lila Guajardo [facility] 1.20.114 350.1.13.10 4.2.7.2.686 [id number] [facility] 2021-11-16 10:45:00 2021-11-16 10:45:00 Outpatient P BENNETTLILA BENNETT LILA [facility] [id number] [facility] 2021-10-23 15:30:00 2021-10-23 15:45:00 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 Visit 2, [facility] Adum, [facility] 1.2840.114 350.1.13.10 4.2.7.2.686 [id number] [facility] 2021-10-23 13:15:00 2021-10-23 14:41:13 Outpatient R ADUM, [facility] [id number] [facility] 2021-10-23 13:15:00 2021-10-23 14:41:13 Routine Visit Adum, [facility] 1.2840.114 350.1.13.10 4.2.7.2.686 [id number] 134 [id number] [facility] 2021-10-12 14:15:00 2021-10-12 15:27:04 Outpatient R ADUM, [facility] [id number] [facility] 2021-10-12 14:15:00 2021-10-12 15:27:04 Routine Visit Adum, [facility] 1.2840.114 350.1.13.10 4.2.7.2.686 [id number] [facility] 2021-10-12 14:15:00 2021-10-12 14:15:00 Outpatient R CAROL ANN ABI [facility] [id number] [facility] 2021-10-11 00:00:00 2021-10-11 00:00:00 Orders Only Doctor Unassigned, [place] [facility] 1.2840.114 350.1.13.10 4.2.7.2.686 [id number] [facility] 2021-10-11 00:00:00 2021-10-11 00:00:00 Telephone AdAbigail khanian Codi [facility] BUILDING 1.2840.114 350.1.13.10 4.2.7.2.686 [id number] 134 [id number] [facility] 2021-10-10 00:00:00 2021-10-10 00:00:00 Telephone AdAbi khan [facility] BUILD[facility] 1.2840.114 350.1.13.10 4.2.7.2.686 [id number] 134 [id number] [facility] 2021-10-09 00:00:00 2021-10-09 00:00:00 Case Management Kin Meggan [facility] BUILDING 1.2840.114 350.1.13.10 4.2.7.2.686 [id number] 134 [id number] [facility] 2021-10-09 00:00:00 2021-10-09 00:00:00 Telephone Kin Meggan [facility] BUILD[facility] 1.2840.114 350.1.13.10 4.2.7.2.686 [id number] 134 [id number] [facility] 2021-10-05 00:00:00 2021-10-05 00:00:00 Telephone Adbill Abi Codi [facility] BUILDING 1.2840.114 350.1.13.10 4.2.7.2.686 [id number] 134 [id number] [facility] 2021-10-04 16:30:00 2021-10-04 16:30:00 Office Visit Meggan Sanderson [facility] BUILDING 1.2840.114 350.1.13.10 4.2.7.2.686 [id number] 134 [id number] [facility] 2021-10-04 16:30:00 2021-10-04 16:14:38 Outpatient R MEGGAN SANDERSON [facility] [id number] [facility] 2021-10-04 00:00:00 2021-10-04 00:00:00 Telephone Adum, Abi Kincaid [facility] 1.2.840.114 350.1.13.10 4.2.7.2.686 [id number] 134 [id number] [facility] 2021-09-26 09:11:00 2021-09-26 23:59:00 Hospital Encounter Elise Mahmood BUILDING 1.2.84.114 350.1.13.10 4.2.7.2.686 [id number] [facility] 2021-09-26 00:00:00 2021-09-26 23:59:00 Outpatient R ELISE MAHMOOD [facility]CO [id number] [facility] 2021-09-26 00:00:00 2021-09-26 00:00:00 Patient Secure Msg Adum, Abi Codi [facility] BUILD[facility] 1.2.840.114 350.1.13.10 4.2.7.2.686 [id number] 134 [id number] [facility] 2021-09-25 08:00:00 2021-09-25 08:15:00 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 Visit Pob, Adc Lab Main Adum, Abi Kincaid [facility] BUILDING 1.2840.114 350.1.13.10 4.2.7.2.686 [id number] [facility] 2021-09-25 08:00:00 2021-09-25 08:00:00 Outpatient R ADUM, ABI [facility] [id number] [facility] 2021-09-25 00:00:00 2021-09-25 00:00:00 Telephone Adum, Abi [facility] BUILDING 1.2.840.114 350.1.13.10 4.2.7.2.686 [id number] 134 [id number] [facility] 2021-09-25 00:00:00 2021-09-25 00:00:00 Orders Only Doctor Unassigned, [place] [facility] 1.2840.114 350.1.13.10 4.2.7.2.686 [id number] [facility] 2021-09-18 14:00:00 2021-09-18 15:06:03 Outpatient R ADUM, [facility] [id number] [facility] 2021-09-18 14:00:00 2021-09-18 15:06:03 Initial Visit Adbill [facility] BUILDING 1.2.840.114 350.1.13.10 4.2.7.2.686 [id number] [facility] 2021-09-18 14:00:00 2021-09-18 15:06:03 Outpatient R ADUM, [facility] [id number] [facility] 2021-09-18 00:00:00 2021-09-18 00:00:00 Orders Only Doctor Unassigned, [place] [facility] 1.2840.114 350.1.13.10 4.2.7.2.686 [id number] [facility] 2020-10-18 09:00:00 2020-10-18 09:00:00 Outpatient R ABI RANGEL [facility] [id number] [facility] 2020-10-16 09:00:00 2020-10-16 09:00:00 Outpatient R ABI RANGEL [facility] [id number] [facility] 2020-02-18 10:14:58 2020-02-18 10:34:58 Laboratory Only Lab, [facility] [address] 1.0.114 350.1.13.10 4.2.7.2.686 [id number] [facility] 2020-02-18 10:14:58 2020-02-18 10:34:58 Laboratory Only Lab, [facility] 1.840.114 350.1.13.10 4.2.7.2.686 [id number] 2020-02-18 10:20:00 2020-02-18 10:20:00 Outpatient Yohan [facility] [id number] [facility] 2019-10-26 00:00:00 2019-10-26 00:00:00 Telephone Adum, Abi [facility] Building 1.2840.114 350.1.13.10 4.2.7.2.686 [id number] [facility] 2019-10-26 00:00:00 2019-10-26 00:00:00 Telephone Adum, Abi [facility] Building 1.2840.114 350.1.13.10 4.2.7.2.686 [id number] 2019-10-15 09:21:04 2019-10-15 10:09:05 Routine Visit Adum, Abi [facility] Building 1.2840.114 350.1.13.10 4.2.7.2.686 [id number] [facility] 2019-10-15 09:21:04 2019-10-15 10:09:05 Routine Visit Abi [facility] Building 1.2.840.114 350.1.13.10 4.2.7.2.686 [id number] 134 [id number] 2019-10-15 09:00:00 2019-10-15 09:00:00 Outpatient R ABI RANGEL [facility] [id number] [facility] 2019-10-15 00:00:00 2019-10-15 00:00:00 Orders Only Doctor Unassigned, [place] [facility] 1.2.840.114 350.1.13.10 4.2.7.2.686 [id number] [facility] 2019-10-15 00:00:00 2019-10-15 00:00:00 Orders Only Doctor Unassigned, [place] [facility] 1.2.840.114 350.1.13.10 4.2.7.2.686 [id number] 2019-09-16 00:00:00 2019-09-16 00:00:00 Telephone [facility] 1.2.840.114 350.1.13.10 4.2.7.2.686 [id number] 134 [id number] [facility] 2019-09-16 00:00:00 2019-09-16 00:00:00 Telephone [facility] 1.2.840.114 350.1.13.10 4.2.7.2.686 [id number] 134 [id number] 2019-09-09 06:02:00 2019-09-10 21:50:00 [facility] 1.2.840.114 350.1.13.10 4.2.7.2.686 [id number] [id number] [facility] 2019-09-09 06:02:00 2019-09-10 21:50:00 Hospital Encounter Bibi [facility] 1.2.840.114 350.1.13.10 4.2.7.2.686 [id number] [id number] 2019-09-09 00:00:00 2019-09-09 00:00:00 Orders Only Doctor Unassigned, [place] [facility] 1.2.840.114 350.1.13.10 4.2.7.2.686 [id number] [facility] 2019-09-09 00:00:00 2019-09-09 00:00:00 Orders Only Doctor Unassigned, [place] [facility] 1.2.840.114 350.1.13.10 4.2.7.2.686 [id number] 2019-09-08 11:00:00 2019-09-08 11:00:00 Outpatient R [facility] [id number] [facility] 2019-09-08 00:00:00 2019-09-08 00:00:00 Telephone [place] [facility] 1.2.840.114 350.1.13.10 4.2.7.2.686 [id number] [facility] 2019-09-08 00:00:00 2019-09-08 00:00:00 Case Management [facility] Building 1.2.840.114 350.1.13.10 4.2.7.2.686 [id number] [facility] 2019-09-08 00:00:00 2019-09-08 00:00:00 Telephone [place] [facility] Building 1.2.840.114 350.1.13.10 4.2.7.2.686 [id number] 2019-09-07 16:40:00 2019-09-07 21:55:00 Outpatient P YAS DAS [facility] SHAE [id number] [facility] 2019-09-07 16:40:00 2019-09-07 21:55:00 Hospital Encounter AdAbi khan [facility] 1.2.840.114 350.1.13.10 4.2.7.2.686 [id number] [facility] 2019-09-07 00:00:00 2019-09-07 00:00:00 Telephone AdAbi khan [facility] nal Building 1.2.840.114 350.1.13.10 4.2.7.2.686 [id number] [facility] 2019-09-06 00:00:00 2019-09-06 00:00:00 Orders Only Doctor Unassigned, [place] [facility] 1.2.840.114 350.1.13.10 4.2.7.2.686 [id number] [facility] 2019-09-03 13:35:43 2019-09-03 14:34:02 Routine Visit Abi Rangel [facility] Building 1.2.840.114 350.1.13.10 4.2.7.2.686 [id number] [facility] 2019-09-03 13:45:00 2019-09-03 13:45:00 Outpatient R ADABI KHAN [facility] [id number] [facility] 2019-08-27 16:16:56 2019-08-27 16:31:56 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 Visit 2, Adc Lab [facility] 1.2.840.114 350.1.13.10 4.2.7.2.686 [id number] [facility] 2019-08-27 13:35:59 2019-08-27 16:04:49 Initial Visit Bibi [place] [facility] 1.2.840.114 350.1.13.10 4.2.7.2.686 [id number] [facility] 2019-08-27 13:30:00 2019-08-27 13:30:00 Outpatient R BIBI RED[place] [facility] [id number] [facility] 2019-08-20 10:00:00 2019-08-20 10:00:00 Outpatient Arjun Quintanilla [facility] RADI [id number] [facility] 2019-04-20 13:00:00 2019-04-20 13:00:00 Outpatient Dwight Arjun [facility] RADI [id number] [facility] Results Test Description Test Time Test Comments Results Result Co mments Source [facility]) IMMUNE [id number] 16:45:20* Test Item Value Reference Range Interpretation Comme nts RHIG CANDIDATE? (test code = 5055) No- see comment Patient is not a candidate for RhIg- Patient is Rh Positive.Performed at [facility] Laboratory Services - [facility] Blood [address] Free: [phone] No. [id number] [facility] CampusType and Screen - ONCE [id number] 11:19:31 * Test Item Value Reference Range Interpretation Comme [facility] ABO & RH (test code = 20) A Positive Performed at [facility] Laboratory [facility] - [facility] Blood [place] [address]Toll Free: [phone] No. [id number] IAT (test code = 1185) Negative Performed at [facility] Blood [place] [address]Toll Free: [phone] No. [id number] [facility] CampusPOCT URINALYSIS W/O SPECIFIC [id number] 21:48:00* Test Item Value Reference Range Interpretation Comme nts POCT PH U (test code = 3254) n/a 5-8 POCT U LEUK EST (test code = 3263) n/a Negative - Negative POCT U NIT (test code = 3262) n/a Negative - Negati ve POCT U PROT (test code = 3259) negative Negative - Negat lucy POCT U GLU (test code = 3256) negative Negative - Negati ve POCT U KETONE (test code = 3258) n/a Negative - Neg ative POCT U BLD (test code = 3257) n/a Negative - Negati ve [facility] URINALYSIS W/O SPECIFIC [id number] 20:26:00* Test Item Value Reference Range Interpretation Comme nts POCT PH U (test code = 3254) n/a 5-8 POCT U LEUK EST (test code = 3263) n/a Negative - Negative POCT U NIT (test code = 3262) n/a Negative - Negati ve POCT U PROT (test code = 3259) negative Negative - Negat lucy POCT U GLU (test code = 3256) negative Negative - Negati ve POCT U KETONE (test code = 3258) n/a Negative - Neg ative POCT U BLD (test code = 3257) n/a Negative - Negati ve [facility] URINALYSIS W/O SPECIFIC [id number] 20:10:00* Test Item Value Reference Range Interpretation Comme nts POCT PH U (test code = 3254) N/A 5-8 POCT U LEUK EST (test code = 3263) N/A Negative - Negative POCT U NIT (test code = 3262) N/A Negative - Negati ve POCT U PROT (test code = 3259) Trace Negative - Negat lucy POCT U GLU (test code = 3256) Negative Negative - Negati ve POCT U KETONE (test code = 3258) N/A Negative - Neg ative POCT U BLD (test code = 3257) N/A Negative - Negati ve [facility] URINALYSIS W/O SPECIFIC [id number] 22:32:00* Test Item Value Reference Range Interpretation Comme nts POCT PH U (test code = 3254) n/a 5-8 POCT U LEUK EST (test code = 3263) n/a Negative - Negative POCT U NIT (test code = 3262) n/a Negative - Negati ve POCT U PROT (test code = 3259) trace Negative - Negat lucy POCT U GLU (test code = 3256) negative Negative - Negati ve POCT U KETONE (test code = 3258) n/a Negative - Neg ative POCT U BLD (test code = 3257) n/a Negative - Negati ve [facility] URINALYSIS W/O SPECIFIC [id number] 20:59:00* Test Item Value Reference Range Interpretation Comme nts POCT PH U (test code = 3254) n/a 5-8 POCT U LEUK EST (test code = 3263) n/a Negative - Negative POCT U NIT (test code = 3262) n/a Negative - Negati ve POCT U PROT (test code = 3259) trace Negative - Negat lucy POCT U GLU (test code = 3256) negative Negative - Negati ve POCT U KETONE (test code = 3258) n/a Negative - Neg ative POCT U BLD (test code = 3257) n/a Negative - Negati ve [facility] URINALYSIS W/O SPECIFIC [id number] 22:03:00* Test Item Value Reference Range Interpretation Comme nts POCT PH U (test code = 3254) n/a 5-8 POCT U LEUK EST (test code = 3263) n/a Negative - N egative POCT U NIT (test code = 3262) n/a Negative - Negati ve POCT U PROT (test code = 3259) neg Negative - Negat lucy POCT U GLU (test code = 3256) neg Negative - Negati ve POCT U KETONE (test code = 3258) n/a Negative - Neg ative POCT U BLD (test code = 3257) n/a Negative - Negati ve [facility] URINALYSIS W/O SPECIFIC [id number] 22:46:00* Test Item Value Reference Range Interpretation Comme nts POCT PH U (test code = 3254) n/a 5-8 POCT U LEUK EST (test code = 3263) n/a Negative - Negative POCT U NIT (test code = 3262) n/a Negative - Negati ve POCT U PROT (test code = 3259) negative Negative - Negat lucy POCT U GLU (test code = 3256) negative Negative - Negati ve POCT U KETONE (test code = 3258) n/a Negative - Neg ative POCT U BLD (test code = 3257) n/a Negative - Negati ve [facility] URINALYSIS W/O SPECIFIC [id number] 22:19:00* Test Item Value Reference Range Interpretation Comme nts POCT PH U (test code = 3254) 6 mg/dl 5-8 POCT U LEUK EST (test code = 3263) + Negative - Negative POCT U NIT (test code = 3262) Negative Negative - Negati ve POCT U PROT (test code = 3259) negative Negative - Negat lucy POCT U GLU (test code = 3256) Negative Negative - Negati ve POCT U KETONE (test code = 3258) Negative Negative - Neg ative POCT U BLD (test code = 3257) Negative Negative - Negati ve [facility] URINALYSIS W/O SPECIFIC [id number] 20:21:00* Test Item Value Reference Range Interpretation Comme nts POCT PH U (test code = 3254) n/a 5-8 POCT U LEUK EST (test code = 3263) n/a Negative - N egative POCT U NIT (test code = 3262) n/a Negative - Negati ve POCT U PROT (test code = 3259) neg Negative - Negat lucy POCT U GLU (test code = 3256) neg Negative - Negati ve POCT U KETONE (test code = 3258) n/a Negative - Neg ative POCT U BLD (test code = 3257) n/a Negative - Negati ve [facility] URINALYSIS W/O SPECIFIC [id number] 21:00:00* Test Item Value Reference Range Interpretation Comme nts POCT PH U (test code = 3254) n/a 5-8 POCT U LEUK EST (test code = 3263) n/a Negative - Negative POCT U NIT (test code = 3262) n/a Negative - Negati ve POCT U PROT (test code = 3259) negative Negative - Negat lucy POCT U GLU (test code = 3256) negative Negative - Negati ve POCT U KETONE (test code = 3258) n/a Negative - Neg ative POCT U BLD (test code = 3257) n/a Negative - Negati ve [facility] URINALYSIS W/O SPECIFIC [id number] 20:59:00* Test Item Value Reference Range Interpretation Comme nts POCT PH U (test code = 3254) n/a 5-8 POCT U LEUK EST (test code = 3263) n/a Negative - Negative POCT U NIT (test code = 3262) n/a Negative - Negati ve POCT U PROT (test code = 3259) negative Negative - Negat lucy POCT U GLU (test code = 3256) negative Negative - Negati ve POCT U KETONE (test code = 3258) n/a Negative - Neg ative POCT U BLD (test code = 3257) n/a Negative - Negati ve [facility] URINALYSIS W/O SPECIFIC [id number] 19:09:00* Test Item Value Reference Range Interpretation Comme nts POCT PH U (test code = 3254) n/a 5-8 POCT U LEUK EST (test code = 3263) n/a Negative - Negative POCT U NIT (test code = 3262) n/a Negative - Negati ve POCT U PROT (test code = 3259) negative Negative - Negat lucy POCT U GLU (test code = 3256) negative Negative - Negati ve POCT U KETONE (test code = 3258) n/a Negative - Neg ative POCT U BLD (test code = 3257) n/a Negative - Negati ve [facility] URINALYSIS W/O SPECIFIC [id number] 19:54:00* Test Item Value Reference Range Interpretation Comme nts POCT PH U (test code = 3254) 5 mg/dl 5-8 POCT U LEUK EST (test code = 3263) trace Negative - Negative POCT U NIT (test code = 3262) negative Negative - Negati ve POCT U PROT (test code = 3259) trace Negative - Negat lucy POCT U GLU (test code = 3256) normal Negative - Negati ve POCT U KETONE (test code = 3258) negative Negative - Neg ative POCT U BLD (test code = 3257) negative Negative - Negati ve [facility] [id number] 14:39:00* Test Item Value Reference Range Interpretation Comme nts UA COLOR (test code = COLU) YELLOW YELLOW UA APPEARANCE (test code = APPU) Slightly-Cloudy CLEAR UA GLUCOSE DIPSTICK (test code = DGLUU) NEGATIVE NEG UA BILIRUBIN DIPSTICK (test code = BILU) NEGATIVE NEG UA KETONE DIPSTICK (test cod e = KETU) NEGATIVE NEG UA SPECIFIC GRAVITY [...] NONE SEEN URINE SAMPLE: CLEAN CATCHCOMPREHENSIVE METABOLIC [id number] 14:20:00* Test Item Value Reference Range Interpretation Comme nts SODIUM (test code = NA) 139 mEq/L 135-145 N POTASSIUM (test code = K) 3.5 mEq/L 3.5-5.0 N CHLORIDE (test code = CL) 105 mEq/L 100-115 N CARBON DIOXIDE (test code = CO2) 24 mEq/L 22-31 N ANION GAP (test code = GAP) 13.20 10-20 N GLUCOSE (test code = GLU) 71 mg/dL 65-110 N BLOOD UREA NITROGEN (test co de = BUN) 7 mg/dL 7-18 N GLOMERULAR FILTRATION RATE ( test code = GFR) 102 ml/min >60 N CREATININE (test code = CREAT) 0.7 mg/dL [...] 14 units/L 12-78 N ALKALINE PHOSPHATASE TOTAL ( test code = ALKP) 77 units/L 46-116 N UA RFLX MICR CULT IF [id number] 14:07:00* Test Item Value Reference Range Interpretation Comme nts UA COLOR (test code = COLU) YELLOW YELLOW UA APPEARANCE (test code = APPU) CLOUDY CLEAR A UA GLUCOSE DIPSTICK (test co de = DGLUU) NEGATIVE NEG UA BILIRUBIN DIPSTICK (test code = BILU) NEGATIVE NEG UA KETONE DIPSTICK (test cod e = KETU) NEGATIVE NEG UA SPECIFIC GRAVITY (test co de = SGU) 1.006 1.001-1.035 N UA BLOOD DIPSTICK (test code = RODOLFO) NEG NEG UA PH DIPSTICK (test code = BUTCH) 6.0 5-9 UA PROTEIN DIPSTICK (test co de = PROU) NEGATIVE NEG UA UROBILINIOGEN DIPSTICK (test code = URO) NEGATIVE mg/dL NEG UA NITRITE DIPSTICK (test co de = SCOTT) NEG NEG UA LEUKOCYTE ESTERASE DIPSTI CK (test code = LEUU) 2+ NEG A UA WBC (test code = WBCU) 6-10 #/hpf NONE SEEN A UA RBC (test code = RBCU) 3-5 #/hpf NONE SEEN A UA EPITHELIAL CELLS (test co de = EPIU) MODERATE #/HPF RARE-FEW A UA BACTERIA (test code = BACU) MANY /HPF RARE-FEW A Indication for culture: Suprapubic PainCBC W/AUTO [id number] 13:59:00* Test Item Value Reference Range Interpretation Comme nts WHITE BLOOD CELL (test code = WBC) [...] pg 27-35 N MEAN CELL HGB CONCETRATION ( test code = MCHC) 33.4 gm/dL 32.2-34.1 N RED CELL DISTRIBUTION WIDTH (test code = RDW) 12.9 % 12.4-16.5 N PLATELET COUNT (test code = PLT) 224 K/mm3 133-385 N MEAN PLATELET VOLUME (test c ode = MPV) 10.1 fl 9.1-12.7 N NEUTROPHIL % (test code = NT%) 75.7 [...] BA#) 0.0 K/mm3 MANUAL DIFF REQUIRED (test c ode = MDIFF) NO RBC MORPHOLOGY REQUIRED (salma t code = RBCM) NORMAL NORMAL PLATELET MORPHOLOGY REQUIRED (test code = PLTMR) NORMAL NORMAL - US PREG AFTER [id number] 14:26:00Patient Name: ANDREW HAWKINS Unit No: [id number] EXAMS: CPT CODE: [id number] US PREG AFTER 1ST [id number] [facility] [address], [place] [address] OBSTETRICAL ULTRASOUND REPORT Pat. Name: ANDREW HAWKINS Pat.No: [id number] Study Date: 04/20/2019 1:01pm , Age: 05 1995, 23 Pregnancies: 3, Para 1 LMP: Unknown GA by US: 19w3d GA Selected: 19w2d (From Known E) BILLY: 09/12/2019 Referring MD: ARJUN QUINTANILLA [employer] Vice Principal: Aurelio Willoughby RDMS, T CPT4: [id number] Admitting MD: ARJUN QUINTANILLA Hist/Ind: SCAN 1 ANATOMY ÁNGELA SUREMENTS AGE GROWTH EVALUATION Measurement GA Range Srce %for GA Ratios ----- ---- ------- BPD 4.6 cm 19w6d (09v9w-73o3p) Hadl BPD 76%FL/BPD 0.65 HC 16.9 cm 19w3d (17w6d- 21w0d) Hadl HC 54% FL/AC 0.20 APD 4.8 cm APD HC/AC 1.14 (1.06 -1.25) TAD 4.6 cm TAD CI 0.81 (0.70 - 0.86) AC 14.8 cm 19w5d (27q7u-02w0q) Hadl AC 60% FL 3.0 cm 18w6d (20y3s-55e0d) Hadl FL 42% HL 3.0 cm 19w6d (65b6t-33q8c) Willis HL 60% GA for sonogram 19w3d (18s1u-84h8e) Weight Estimate: based on (BPD,HC,AC,FL) Hadlock Weight: 306 gm (262-351) Hadlock : 0lbs, 10oz Cervical Length: 3.6 cm Heart Rate: 130 bpm MATERNAL ANATOMY Ovaries LxHxW (cm) Right 3.1 x 2.8 x 2.3 Vol: 10.5cc Left 3.1 x 1.5 x 2.1 Vol: 5.1cc Ovarian Cysts LxHxW (cm) R1: 1.6 x 1.4 x 1.7 CLINICAL SUMMARY Type of Gestation: Mata Intrauterine in breech presentation. size is appropriate for gestational age. motion and organs seen: heart motion seen somatic activity observed body and limb movements seen [facility] NAME: ANDREW HAWKINS Radiology Department PHYS: [id number] - Arjun Quintanilla [address] : 1995 AGE: 23 SEX: Marcie [place], [place] [address] LOC: DAIJA PHONE #: [phone] EXAM DATE: 04/20/2019 STATUS: REG CLI FAX #: [phone] RAD NO: Page 1 Signed Report (CONTINUED) Patient Name: ANDREW HAWKINS Unit No: [id number] EXAMS: CPT CODE: [id number] US PREG AFTER TRI 79479 (Continued) Four chamber heart observed Left ventricular outflow tract (LVOT) seen Right ventricular outflow tract (RVOT) seen Normal intracranial anatomy seen Umbilical cord insertion in fetus seen stomach, Renal Fossa, Bladder and Spine seen Three vessel umbilical cord noted abnormalities observed: None seen at this examPlacental location: Posterior Placental maturity : Grade 1 There is no evidence of placenta previa.Amniotic fluid volume is normal. Uterus and adnexa: No significant abnormality is seen. Thank you for allowing us to participate in the care of this patient. Ran Sheehan M.D. Electronic Signature 04/20/2019 02:26pm at 1426 Reported and signed by: Ran Sheehan MD CC: Arjun Quintanilla MD Technologist: Aurelio Willoguhby RDMS, RVT Probe: Trnscrbd D/ (1426) LitAJ13 Orig Print D/T: S: 04/20/2019 (1426)[facility] NAME: ANDREW HAWKINS Radiology Department PHYS: Arjun Antoine [address] : 1995 AGE: 23 SEX: [place] [address] LOC: CharliRAD PHONE #: [phone] EXAM DATE: 04/20/2019 STATUS: REG CLI FAX #: [phone] RAD NO: Page2 Signed Report Patient Name: ANDREW HAWKINS Unit No: [id number] EXAMS: CPT CODE: [id number] US PREG AFTER TRI 09916 (Continued) [facility] NAME: ANDREW HAWKINS Radiology Department PHYS: Arjun Antoine [address] : 1995 AGE: 23 SEX: Marcie [place], [place] [address] LOC: CharliRAD PHONE #: [phone] EXAM DATE: 04/20/2019 STATUS: REG CLI FAX #: [phone] RAD NO: Page 3 Signed Report CHEMISTRY MISCELLANEOUS [id number] 12:14:00* Test Item Value Reference Range Interpretation Comme [facility] CHEMISTRY TEST (test code = TESTC) SEE REPORT CHROMOSIME MICROARRAY ANALYSIS RESULT: Normal Female CHEMISTRY TEST RESULT (test code = RESULTC) TEST NOT PERFORMED CHEMISTRY TEST REF RANGE (test code = REFC) TEST NOT PERFORMED CHEMISTRY TEST UNITS (test code = UNITC) TEST NOT PERFORMED ANORACHEMISTRY MISCELLANEOUS [id number] 12:14:00* Test Item Value Reference Range Interpretation Comme [facility] CHEMISTRY TEST (test code = TESTC) SEE REPORT CHROMOSIME MICRO ARRAY ANALYSIS RESULT: Normal Female ANORAPRODUCTS OF [id number] 16:46:00 RUN DATE: 11/09/18 [facility] PAGE 1 RUN TIME: 1927 Specimen Inquiry RUN USER: INTERFACE -------- ----PATIENT: ANDREW HAWKINS LOC: [facility] [place] U #: [id number] AGE/SX: 23/F ROOM: RE11/06/18REG DR: Arjun Quinatnilla MD : [birth year] BED: DIS: STATUS: [facility] TLOC: SPEC #: [id number] RECD: 11/06/18 STATUS: [facility] #: [id number] BENIGNO: 11/06/18- [facility] DR: Arjun Quintanilla MD ENTERED: 11/06/18 SP TYPE: POC[ OTHR DR: ORDERED: LEVEL IV CODES: [id number] - ENDOMETRIUM, NO PROCEDURES: LEVEL IV (Incomplete) TISSUES: ENDOMETRIUM, NOS - POC CLINICAL HISTORY 23 year old, missed @ 12 weeks (wpd) FINAL DIAGNOSIS Products of conception: - hydropic placental tissue - decidua - rare fragments of embryonic tissue CPT code(s): 93022 cds/wpd 11/09/18 GROSS DESCRIPTION ANATOMIC SOURCE OF TISSUE (per Requisition): Products of conception The specimen is received in a formalin-filled container, labeled with the patient's name and designated "products of conception". The specimen consists of multiple portions of vivas and red tissue on a piece of Telfa pad and a suction collection container aggregating to 6 x 4 x 2.5 cm. Torpedo Worker pieces are submitted in A1 and A2. hz/wpd 11/06/18 @ 9942 MICROSCOPIC DESCRIPTION Placental and decidual tissue is present. Chorionic villi are hydropic. No trophoblastic hyperplasia, central cisterns or trophoblastic inclusions are identified. cds/wpd 11/09/18 CONTINUED ON NEXT PAGE RUN DATE: 11/09/18 [facility] PAGE 2 RUN TIME: 1927 Specimen Inquiry RUN USER: INTERFACE SPEC #: [id number] PATIENT: ANDREW HAWKINS #[id number] (Continued) Signed Amaury Mora Lewis 11/09/18 1646 END OF REPORT HCG [id number] 16:31:00* Test Item Value Reference Range Interpretation Comme [facility] HCG SERUM (test code = HCG) 5349 INTERPRETATION:V ALUES BETWEEN 15-20 milliInternational units/mL NEED TO BERETESTED WITHIN 48 HOURS. All units for these ranges are in milliInternationalunits/mL0-1 WK AFTER CONCEPTION 0-50 1-2 WKS AFTER CONCEPTION 40-3002-3 WKS AFTER CONCEPTION 100-1,0003-4 WKS AFTER CONCEPTION 500-6,0001-2 MONTHS AFTER CONCEPTION 5,000-200,0002-3 MONTHS AFTER CONCEPTION 10,000-100,0002ND TRIMESTER 3,000-50,0003RD TRIMESTER 1,000-50,000 SPECIMENS WITH AN HCG LEVEL FROM 0-6 milliInternationalunits/mL SHOULD BE CONSIDERED NEGATIVE CHEMISTRY 7 [id number] 16:05:00* Test Item Value Reference Range Interpretation Comme [facility] SODIUM (test code = NA) 138 mEq/L 135-145 N POTASSIUM (test code = K) 4.0 mEq/L 3.5-5.0 N CHLORIDE (test code = CL) 104 mEq/L 100-115 N CARBON DIOXIDE (test code = CO2) 27 mEq/L 22-31 N ANION GAP (test code = GAP) 11.00 10-20 N GLUCOSE (test code = GLU) 77 mg/dL 65-110 N BLOOD UREA NITROGEN (test co de = BUN) 6 mg/dL 7-18 L GLOMERULAR FILTRATION RATE ( test code = GFR) 122 ml/min >60 N CREATININE (test code = CREAT) 0.6 mg/dL 0.5-1.0 N CALCIUM (test code = CA) 8.6 mg/dL 8.4-10.2 N CBC W/AUTO [id number] 15:30:00* Test Item Value Reference Range Interpretation Comme nts WHITE BLOOD CELL (test code = WBC) [...] pg 27-35 N MEAN CELL HGB CONCETRATION ( test code = MCHC) 33.5 gm/dL 32.2-34.1 N RED CELL DISTRIBUTION WIDTH (test code = RDW) 12.1 % 12.4-16.5 L PLATELET COUNT (test code = PLT) 222 K/mm3 133-385 N IMMATURE PLATELET FRACTION ( test code = IPF) 0.0 % 0.0-10.8 N MEAN PLATELET VOLUME (test c ode = MPV) 10.6 fl 9.1-12.7 N NEUTROPHIL % (test code = NT%) 59.2 [...] = BA#) 0.0 K/mm3 RBC MORPHOLOGY REQUIRED (salma t code = RBCM) NORMAL NORMAL PLATELET MORPHOLOGY REQUIRED (test code = PLTMR) NORMAL NORMAL - US PREG EVAL 1ST [id number] 18:04:00Patient Name: ANDREW HAWKINS Unit No: [id number] EXAMS: CPT CODE: [id number] US PREG EVAL 1ST TRIMTR 57041 [facility] [address] [place], [place] [address] OBSTETRICAL ULTRASOUND REPORT Pat. Name: ANDREW HAWKINS Pat. No: [id number] Study Date: 11/02/2018 5:13pm , Age: 05 1995, 23 Pregnancies: 2, Para 1001 LMP: 08/11/2018 GA by LMP: 11w6d GA by US: 11w2d GA Selected: 12w1d (From Known E) BILLY: 05/16/2019 Referring MD: ARJUN QUINTANILLA [employer] Vice Principal: Ifrah Ellsworth RDMS CPT4: [id number] Admitting MD: ARJUN QUINTANILLA Hist/Ind: SCAN#1 VIABILITY MEASUREMENTS AGE GROWTH EVALUATION Measurement GA Range Srce %for GA Ratios ----- ---- ------- CRL 4.4 cm 11w2d (72b8f-87o5h) Hadl CRL <05 GA for sonogram 11w2d (73v3d-21h7l) based on (CRL) Avg Cervical Length: 4.3 cm MATERNAL ANATOMY Uterus LxHxW (cm) Size: 12.2 x 8.6 x 9.1 Vol: 499.9cc Ovaries LxHxW (cm) Right 3.5 x 2.1 x 2.7 Vol: 10.4cc Left 3.7 x 3.1 x 2.4 Vol: 14.4cc Ovarian Cysts LxHxW (cm) R1: 2.4 x 2.0 x 2.3 Desc: Corpus Luteum CLINICAL SUMMARY Type of Gestation: Mata abnormalities observed: CARDIAC ACTIVITY NOT SEEN. DEMISE ACRANIA IS NOTED THERE IS EVIDENCE OF PLEURAL EFFUSION AND ASCITIES THE AMNIOTIC FLUID IS HIGHLY ECHOGENIC Placental location: Right lateral Placental maturity : Grade 1 Amniotic fluid volume is normal. [facility] NAME: ANDREW HAWKINS Radiology Department PHYS: FAVIANVINICIO Roberts DwightArjun Rekha Ortiz [address] : 1995 AGE: 23 SEX: F [place] [id number] LOC: Marcie.RAD PHONE #: [phone] EXAM DATE: 11/02/2018 STATUS: REG CLI FAX #: [phone] RAD NO: Page 1 Signed Report (CONTINUED) Patient Name: ANDREW HAWKINS Unit No: [id number] EXAMS: CPT CODE: [id number] US PREG EVAL 1ST TRIMTR 23987 (Continued) Uterus and adnexa: No significant abnormality is seen. GENETIC ABNORMALITY CANNOT BE EXCLUDED. FINDINGS GIVEN TO DR QUINTANILLA BY PHONE AT 6PM 11/02/2018 Thank you for allowing us to participate in the care of this patient. Kera Holliday M.D. Electronic Signature 11/02/2018 06:04pm at 1804 Reported and signed by: Kathleen Holliday MD CC: Arjun Quintanilla MD Technologist: Ifrah Ellsworth RDMS Probe: Trnscrbd D/ (180) [email or web address] Orig Print D/T: S: 11/02/2018 (180) [facility] NAME: ANDREW HAWKINS Radiology Department PHYS: PINEDAAdiNelly Alejandra DwightArjun Da Silva Angel [address] : 1995 AGE: 23 SEX: [place] [phone] LOC: CharliRAD PHONE #: [phone] EXAM DATE: 11/02/2018 STATUS: REG CLI FAX #: [phone] RAD NO: Page 2 Signed Rep ort Patient Name: ANDREW HAWKINS Unit No: [id number] EXAMS: CPT CODE: [id number] US PREG EVAL 1ST TRIMTR 70094 (Continued) [facility] NAME: ANDREW HAWKINS Radiology Department PHYS: PINEDA. - Arjun Quintanilla [address] : 1995 AGE: 23 SEX: F [place] [phone] LOC: CharliRAD PHONE #: [phone] EXAM DATE: 11/02/2018 STATUS: REG CLI FAX #: [phone] RAD NO: Page 3 Signed Report- US PREG UT [id number] 18:04:00Patient Name: ANDREW HAWKINS Unit No: [id number] EXAMS: CPT CODE: [id number] US PREG UT TRANSVAGINAL [id number] [place], [place] [address] OBSTETRICAL ULTRASOUND REPORT Pat. Name: ANDREW HAWKINS Pat. No: [id number] Study Date: 11/02/2018 5:13pm , Age: 05 1995, 23 Pregnancies: 2, Para 1001 LMP: 08/11/2018 GA by LMP: 11w6d GA by US: 11w2d GA Selected: 12w1d (From Known E) BILLY: 05/16/2019 Referring MD: [employer] Vice Principal: Ifrah Ellsworth RDMS CPT4: USPRUTTRVG Hist/Ind: SCAN#1 VIABILITY MEASUREMENTS AGE GROWTH EVALUATION Measurement GA Range Srce %for GA Ratios ----- ---- ------- CRL 4.4 cm 11w2d (22z2c-91l4y) Hadl CRL <05 GA for sonogram 11w2d (39k1f-44h0h) based on (CRL) Avg Cervical Length: 4.3 cm MATERNAL ANATOMY Uterus LxHxW (cm) Size: 12.2 x 8.6 x 9.1 Vol: 499.9cc Ovaries LxHxW (cm) Right 3.5 x 2.1 x 2.7 Vol:10.4cc Left 3.7 x 3.1 x 2.4 Vol: 14.4cc Ovarian Cysts LxHxW (cm) R1: 2.4 x 2.0 x 2.3 Desc: Corpus Luteum CLINICAL SUMMARY Type of Gestation: Mata abnormalities observed: FETALCARDIAC ACTIVITY NOT SEEN. DEMISE ACRANIA IS NOTED THERE IS EVIDENCE OF PLEURAL EFFUSION AND ASCITIES THE AMNIOTIC FLUID IS HIGHLY ECHOGENIC Placental location: Right lateral Placental maturity: Grade 1 Amniotic fluid volume is normal. Uterus and adnexa: [facility] NAME: ANDREW HAWKINS Radiology Department PHYS: PINEDA.Nelly - Arjun Quintanilla [address] : 1995AGE: 23 SEX: Marcie [place], [place] [address] LOC: DAIJA PHONE #: [phone] EXAM DATE: 11/02/2018 STATUS: [facility] CLI FAX #: [phone] RAD NO: Page 1 Signed Report (CONTINUED) Patient Name: ANDREW HAWKINS Unit No: [id number] EXAMS: CPT CODE: [id number] [facility] TRANSVAGINAL [address] (Continued) No significant abnormality is seen. GENETIC ABNORMALITY CANNOT BE EXCLUDED. FINDINGS GIVEN TO DR QUINTANILLA BY PHONE AT 6PM 11/02/2018 Thank you for allowing us to participate in the care of this patient. Kera Holliday M.D. Electronic Signature 11/02/2018 06:04pm at 1804 Reported and signed by: Kathleen Holliday MD CC: Arjun Quintanilla MD Technologist: Ifrah Ellsworth, [facility] Probe: [id number] Trnscrbd D/ (1804) Kaylan Orig Print D/T: S: 11/07/2018 (1323) [facility] NAME: ANDREW HAWKINS Radiology Department PHYS: PINEDAAdiArjun Ash M [address] : 1995 AGE: 23 SEX: F [place] [address] LOC: CharliRAD PHONE #: [phone] EXAM DATE: 11/02/2018 STATUS: DEP CLI FAX #: [phone] RAD NO: Page 2 Signed Report Patient Name: ANDREW HAWKINS Unit No: [id number] EXAMS: CPT CODE: [id number] US PREG UT TRANSVAGINAL [address] (Continued) [facility] NAME: ANDREW HAWKINS Radiology Department PHYS: Arjun Antoine [address] : 1995 AGE: 23 SEX: F [place] [address] LOC: CharliRAD PHONE #: [phone] EXAM DATE: 11/02/2018 STATUS: [facility] CLI FAX #: [phone] RAD NO: Page 3 Signed Report Notes Date/Time Note Provider Source 2019-07-27 15:07:00 [id number] 237zVxIdVfW6WgZQxvbceNTfqx0/A syP/udG/83BgFgwYxWNf0sCAGHnYW47fq86474-57-74Z22:0 7:00 [facility] ([facility])EMERGENCY PROVIDER REPORTREPORT#:[id number] REPORT STATUS: SignedDATE:07/27/19 TIME: 1507 PATIENT: ANDREW HAWKINS UNIT #: [id number]#: [id number] ROOM/BED:AGE: 23 SEX: F PCP PHYS: Arjun Quintanilla AUTHOR: Kusum Carroll MD * ALL edits or amendments must be made on the electronic/computer document * [place] History Nursing Documentation ReviewNursing data:The data set between the solid lines has been imported from nursing documentation. Any exceptions have been noted below under Provider comments. Current dataSteroids prior to arrival: ROM date: ROM time: EGA (weeks/days): EGA at admit (weeks): EDC date: Prior historyGravida: Para: Term: : Abortions spontaneous: Abortions induced: Living children: Ectopic: Stillbirths: Live births: deaths: Number of previous C/S: Reported maternal labs/dataBlood type: Rh type: Rubella: Hepatitis B: HIV exposure test: VDRL: Group B beta strep: Rho(D) immune globulin this preg: Monitor mode - UA: Feeding preference: Provider comments on imported nursing data: [] Chief complaint: uterine contractions, discomfortHPI:23yo at 33 2/7 weeks prsents with c/o cassia antony contractions yesterday and pressure yesterday continuing into today. Pt states contractions were 5-6 min apart lasting up to 65s and started at 1130 yesterday morning and continued through the evening when she went swimming. No pain with contractions. No bleeding or leaking. Reports increased pressure today compared to yesterday. Worse with walking and improved with rest. No dysuria, hemauria, or urgency. No fevers, cough, respiratory sx or ill contacts. Normal movement. Has appointment tomorrow. No complications in pregnancyPregnancy history: : 3 Term: 1 Abortus: 1 (11 week sab. with d c) Living children: 1 Previous : noneCurrent : EDC: 09/12/19 EGA (weeks/days): 33 2/7 weeksPast medical history: thyroid (h/o hashimotos at 2 yo)Past surgical history: D CSocial history: employed, , no alcohol use, no tobacco use, no drug useFamily historyMOTHER (Gestational diabetes). Medications:Home Medications: Medication Dose/Rte/Freq Days Qty Entered Last Max Daily Dose Reviewed No Known Home Medications AllergiesCoded Allergies:hydrocodone (From VICODIN) (Severe, RASH 11/05/18) Review of SystemsAll systems rev neg: except as marked Objective GeneralVS:Patient Weight Weight (lb): Weight (oz): Weight (kg): 98.6 124/81 82 16 Physical ExamHEENT: normocephalic w/o injuryCardiac: normal rhythmLungs: clear to auscultationNeuro: Exam: alert, oriented x3, normal speech, normal gaitAbdomen: gravid, soft, no abnormal tendernessUterine activity: Monitor: toco Frequency (description): nonePelvic exam: Pelvis clinically adequate: yesCervical/ exam: Dilatation (cm): 0 - closed Effacement (%): 0 station: - 5 presentation: cephalic FHR evaluation: Baseline: 125 bpm Variability: moderate 6-25 bpm Accelerations: 15 X 15 Decelerations: none FHR category: category 1Lower extremities: Edema: none ResultFindings/Data:Laboratory Tests: 07/26 1405 Urines Urine Color (YELLOW) YELLOW Urine Appearance (CLEAR) Slightly-Cloudy Urine pH (5 - 9) 7.0 Ur Specific Varna (1.001 - 1.035) 1.003 Urine Protein (NEG) NEGATIVE Urine Glucose (UA) (NEG) NEGATIVE Urine Ketones (NEG) NEGATIVE Urine Blood (NEG) NEG Urine Nitrite (NEG) NEG Urine Bilirubin (NEG) NEGATIVE Urine Urobilinogen (NEG mg/dL) NEGATIVE Ur Leukocyte Esterase (NEG) 2+ H Urine RBC (NONE SEEN #/hpf) 3-5 H Urine WBC (NONE SEEN #/hpf) 6-10 H Ur Epithelial Cells (RARE - FEW #/HPF) MODERATE H Urine Bacteria (RARE - FEW /HPF) MANY H Hyaline Casts (#/hpf) 0-2 H Urine Mucus (NONE SEEN) RARE Diagnosis, Assessment Plan Diagnosis, Assessment PlanFree Text A P:23yo at 33 2/7 weeks with abdominal/pelvic pain and pressure with h/o cassia natony contractions. No contractions here. No evidence of laborwith cervix closed. No evidence of UTI (dirty specimen) and no sx and no concern for GI etiology. -D/C home -kick counts -Return prn -f/u tomorrow as scheduled FHT category 1 and reactive at 1520 RPT #:[id number] OF REPORT OBObstetric wtlb7743-00-42R07:07:00F.FZBC24485231-2341ULFpthc able for patient gvskJGCEVUPGXZFWZF8108-80-51F35:20:29 [facility] 2019-05-21 13:53:00 [id number] /iVsmpF8KLjGzHT/Hl99V0jIbKWMx bnJJtuDZm60gLUVUmWd0KdQQjKgMUFRp0c9384-35-99L88:5 3:00 [facility] ([facility])EMERGENCY PROVIDER REPORTREPORT#:[id number] REPORT STATUS: SignedDATE:05/21/19 TIME: 1353 PATIENT: ANDREW HAWKINS UNIT #: [id number]#: [id number] ROOM/BED:AGE: 23 SEX: F PCP PHYS: Arjun Quintanilla MDSERVICE AUTHOR: Graham Nolan MD * ALL edits or amendments must be made on the electronic/computer document * HPI-Dizziness/Weakness GeneralConfirmed Patient YesInitial Greet Date/Time 05/21/19 1310PCPDr. Dwight PresentationChief Complaint Dizzy Free Text HPI NotesFree Text HPI Notes23 yo F A1 at 23w presents for 1 day history of malaise and fatigue. No pelvic pain, no chest pain, sob, fevers, chills, URI. Review of Systems ROS StatementsAll systems rev neg except as marked. Basic Review of SystemsBasic ROS MS: No ext swelling/pain Focused Review of SystemsConstitutionalDenies: Chills, Fever, Malaise. RespiratoryDenies: Cough, non-productive, Dyspnea on exertion, Shortness of breath. CardiovascularDenies: Chest pain, Dyspnea on exertion, Edema. GIDenies: Abdominal pain, Constipation, Diarrhea, Nausea, Vomiting. SkinDenies: Abscess, Rash, Swelling. NeurologicReports: Dizziness, Headache. Denies: Numbness. Past Medical History - AdultStated Complaint 23 WKS, DIZZINESSAllergiesCoded Allergies:acetaminophen (From VICODIN) (Severe, RASH 11/05/18)hydrocodone (From VICODIN) (Severe, RASH 11/05/18) Home MedicationsDiscontinued ScriptstraMADol (ULTRAM) 100 MG PO Q6H PRN PRN POSTOPERATIVE PAIN traMADol (ULTRAM) 100 MG PO Q6H PRN PRN POSTOPERATIVE PAIN #20 TABS Prov: 11/06/18 DC: 05/21/19 1332 Change of medicationIBUPROFEN (MOTRIN) 800 MG PO Q8H PRN PRN POSTOPERATIVE PAIN IBUPROFEN (MOTRIN) 800 MG PO Q8H PRN PRN POSTOPERATIVE PAIN #90 TAB Ref 2 Prov: 11/06/18 DC: 05/21/19 1332 Change of medicationFLUCONAZOLE (DIFLUCAN) 150 MG PO DAILY FLUCONAZOLE (DIFLUCAN) 150 MG PO DAILY #1 TABS Prov: 11/06/18 DC: 05/21/19 1332 Change of medication Reported MedicationsNo Known Home Medications Discontinued Reported Medications[NITROFURANTOIN] 100 MG PO Q12HR MICONAZOLE NITRATE (MONISTAT-DERM 2%) 1 APPLIC TOPICAL BID Smoking status for patients 13 years old or older: Never Smoker Physical Exam Vital SignsVital SignsFirst Documented: Result Date Time Pulse Ox 100 05/21 1317 B/P 133/72 05/21 1317 B/P Mean 92 05/21 1317 Temp 36.8 05/21 1317 Pulse 100 05/21 1317 Resp 16 05/21 1316 Last Documented: Result Date Time Pulse Ox 100 05/21 1434 B/P 132/78 05/21 143 B/P Mean 96 05/21 1433 Temp 36.8 05/21 143 Pulse 92 05/21 143 Resp 18 05/21 143 Review of Vital Signs Reviewed Basic Physical ExamBasic PE HEAD: Atraumatic/NC, EYES: PERRL, conj clear, ABD: Soft/non-tender, EXT: No gross abnormality, SKIN: No rashes, warm/dry, PSYCH: NL thought content Focused PEGeneral/Const General/Const Awake, Alert, No acute distress, CooperativeMS Head Head Atraumatic, NormocephalicMS Neck Neck Atraumatic, Supple, Non-tenderResp/Chest Respiratory/Chest Atraumatic, Breath sounds NL, No respiratory distress, No retractionsCardiovascular Cardiovascular Heart rate NL, Regular rhythm, No murmurs, Peripheral circulation NLAbdomen/GI Abdomen/GI Atraumatic, Soft, Non-tender, BS normoactive, No distentionNeurologic Neurologic Oriented X3, Speech NL, CN II - XII intact, Memory NLPsychiatric Psychiatric Affect NL, Mood NL, Thought content NL Interpretation Diagnostics Lab Results InterpretationResultsLaboratory Tests 05/21/19 1326:[Embedded Image Not Available]Laboratory Tests: 05/21 1326 Chemistry Sodium (135 - 145 mEq/L) 139 Potassium (3.5 - 5.0 mEq/L) 3.5 Chloride (100 - 115 mEq/L) 105 Carbon Dioxide (22 - 31 mEq/L) 24 Anion Gap (10 - 20) 13.20 BUN (7 - 18 mg/dL) 7 Creatinine (0.5 - 1.0 mg/dL) 0.7 Glomerular Filtr Rate (>60 ml/min) 102 Glucose (65 - 110 mg/dL) 71 Calcium (8.4 - 10.2 mg/dL) 8.7 Total Bilirubin (0.2 - 1.0 mg/dL) 0.5 AST (15 - 37 units/L) 14 L ALT (12 - 78 units/L) 14 Total Alk Phosphatase (46 - 116 units/L) 77 Total Protein (6.3 - 8.2 gm/dL) 7.0 Albumin (3.4 - 4.8 gm/dL) 2.8 L Hematology WBC (6.6 - 12.1 K/mm3) 9.2 RBC (3.45 - 5.01 M/mm3) 3.74 Hgb (10.7 - 13.9 g/dL) 11.7 Hct (32.1 - 42.1 %) 35.0 MCV (84.1 - 94.8 fL) 94 MCH (27 - 35 pg) 31.3 MCHC (32.2 - 34.1 gm/dL) 33.4 RDW (12.4 - 16.5 %) 12.9 Plt Count (133 - 385 K/mm3) 224 MPV (9.1 - 12.7 fl) 10.1 Neut % (Auto) (56.5 - 79.4 %) 75.7 Lymph % (Auto) (14.3 - 34.3 %) 13.0 L [place]in[place] % (Auto) (5.1 - 10.4 %) 10.5 H Eos % (Auto) (0.1 - 3.0 %) 0.2 Baso % (Auto) (0.1 - 1.0 %) 0.2 Neut # (Auto) (K/mm3) 6.9 Lymph # (Auto) (K/mm3) 1.2 [place] # (Auto) (K/mm3) 1.0 Eos # (Auto) (K/mm3) 0.02 Baso # (Auto) (K/mm3) 0.0 Add Manual Diff NO Urines Urine Color (YELLOW) YELLOW Urine Appearance (CLEAR) CLOUDY Urine pH (5 - 9) 6.0 Ur Specific Varna (1.001 - 1.035) 1.006 Urine Protein (NEG) NEGATIVE Urine Glucose (UA) (NEG) NEGATIVE Urine Ketones (NEG) NEGATIVE Urine Blood (NEG) NEG Urine Nitrite (NEG) NEG Urine Bilirubin (NEG) NEGATIVE Urine Urobilinogen (NEG mg/dL) NEGATIVE Ur Leukocyte Esterase (NEG) 2+ H Urine RBC (NONE SEEN #/hpf) 3-5 H Urine WBC (NONE SEEN #/hpf) 6-10 H Ur Epithelial Cells (RARE - FEW #/HPF) MODERATE H Urine Bacteria (RARE - FEW /HPF) MANY H Microbiology: Date/Time Procedure - Status Source Growth 05/21 1407 Urine Culture - RECD URINE Re-Evaluation MDM Free Text MDM NotesFree Text MDM NotesVSSLabs wnlPatient feeling betterUA with WBCs/bacteruria Increase PO intake of fluidsoral abx FU with PCPstrict return precautions for worsening symptoms ED CourseMedication(s) OrderedMedication(s) Ordered:Anti-Infective Agents Sig/Ramon Start time Last Medication Dose Route Stop Time Status Admin Ceftriaxone Sodium 1,000 MG X1ED STA 05/21 1411 DC 05/21 Sodium Chloride 100 ML IV 05/21 1440 1422 Electrolytic, Caloric, And Sara Sig/Ramon Start time Last Medication Dose Route Stop Time Status Admin Sodium Chloride 1,000 ML X1ED STA 05/21 1344 DC 05/21 IV 05/21 1345 1422 ConsultationConsultation Referral/Consult Name Arjun Quintanilla MD Billing And Accounting Staff Assistant Called Primary care physician Requested Call Time 1424 Requested Call Date 05/21/19 Call Returned Call returned Call Returned Time 1424 Call Returned Date 05/21/19 Billing And Accounting Staff Assistant Agrees with eval, Agrees with plan Patient Discharge Departure Vital Signs/ConditionVital SignsFirst Documented: Result Date Time Pulse Ox 100 05/21 1317 B/P 133/72 05/21 1317 B/P Mean 92 05/21 1317 Temp 36.8 05/21 1317 Pulse 100 05/21 1317 Resp 16 05/21 1317 Last Documented: Result Date Time Pulse Ox 100 05/21 1434 B/P 132/78 05/21 1434 B/P Mean 96 05/21 1434 Temp 36.8 05/21 1434 Pulse 92 05/21 1434 Resp 18 05/21 1434 All vital signs available at the time of this entry have been reviewed. Condition Stable Clinical ImpressionClinical ImpressionPrimary Impression: UTI (urinary tract infection)Secondary Impressions: Malaise and fatigueTime of Impression 1356 Disposition DecisionDischarge )( Discharged to Home Yes )( Time 142 )( Date 05/21/19 Discharge/Care PlanCounseled Regarding Diagnosis, Need for follow-up, When to return to EDPrescriptionsmacrobidPrescriptions Reviewed Risks, Benefits, Alternative treatment Discharge NoteI have spoken with the patient and/or caregivers. I have explained the patient'scondition, diagnoses and treatment plan based on the information available to meat this time. I have answered the patient's and/or caregiver's questions and addressed any concerns. The patient and/or caregivers have as good an understanding of the patient's diagnosis, condition and treatment plan as can beexpected at this point. The vital signs have been stable. The patient's condition is stable and appropriate for discharge from the emergency department. The patient will pursue further outpatient evaluation with the primary care physician or other designated or consulting physician as outlined in the discharge instructions. The patient and/or caregivers are agreeable to this planof care and follow-up instructions have been explained in detail. The patient and/or caregivers have received these instructions in written format and have expressed an understanding of the discharge instructions. The patient and/or caregivers are aware that any significant change in condition or worsening of symptoms should prompt an immediate return to this or the closest emergency department or a call to 911. Quality MeasuresSmoking Cessation Screened, non user at 1712RPT #:[id number] OF REPORTTex[facility] department akzjtd1210-96-12M74:53:00F.[id number] ilable for patient oovhGMOGVNFAQFGOIW1132-08-23E59:12:29 [facility] 2018-11-07 11:11:00 [id number] 6e+m80bgHRJDUW7zZjorP3jl9GBpq phFGuBmYXWkZjCAWzxgQVjem23lSvPZaGF2498-23-93C15:1 1:[id number] [facility]'[place] [address] PATIENT NAME: ANDREW HAWKINS ADMIT DATE: 11/06/18ACCOUNT NO: [id number] ROOM NO: AGE: 23 SEX: F ADMITTING PHYSICIAN: ATTENDING PHYSICIAN: Arjun Quintanilla MD ADMITTING PHYSICIAN: Arjun Quintanilla MDOPERATION DATE: 11/06/2018 PREOPERATIVE DIAGNOSIS: Missed at 11 weeks POSTOPERATIVE DIAGNOSIS: Missed at 11 weeks PROCEDURE: Suction dilation and curettage SURGEON: Arjun Quintanilla MD FREIGHT CONDUCTOR SURGEON: None ANESTHESIA: GET COMPLICATIONS: None ESTIMATED BLOOD LOSS: 175 mL INTRAVENOUS FLUIDS: 600 mL crystalloid URINE OUTPUT: 100 mL of clear urine via straight catheterization SPECIMENS:1. Products of conception2. Endometrial curettings FINDINGS: Examination under anesthesia revealed the cervix to be closed andfirm. The uterus was 11 weeks in size, anteverted, and freely movable. Therewere no palpable adnexal masses. Moderate products of conception were obtained. PROCEDURE IN DETAIL: The patient was taken to the operating room with IV fluidsrunning. She was placed in the supine position, where general anesthesia wassuccessfully induced. She was then repositioned in the dorsal lithotomyposition and her perineum and vagina were prepped and draped in the usualsterile fashion. Examination under anesthesia was performed with a closed andfirm cervix noted. The uterus was 11 weeks in size, anteverted, and freelymovable. No adnexal masses were palpable. A straight catheter was sterilelyadvanced into the bladder with approximately 100 mL of clear urine outputdrained. Once the bladder was completely drained, the catheter was removed anddiscarded. A weighted speculum was placed into the posterior vault of thevagina and an anterior retractor was used to gain better visualization of thecervix. A single-toothed tenaculum was applied to the anterior cervical lip and PATIENT NAME: ANDREW HAWKINS the cervical os was progressively dilated. The uterus was sounded to 11 cm. A 10-mm flexible curette was gently advanced to the uterine fundus. The suction device was activated and the curette was rotated to clear the uterus of all products of conception. The curette was removed and a sharp curettage was performed until a gritty texture was noted. The suction curette was then reintroduced to clear the uterus of all remaining products of conception. Heavy bleeding was noted after removal of the suction curette and bimanual uterine massage was performed with decreased bleeding noted. The tenaculum was removed from the cervix and bleeding was noted from a tear on the left puncture site. A blucss-kp-eofuy stitch using 2-0 chromic was placed with excellent hemostasis noted. All instruments were subsequently removed from the vagina. The patient tolerated the procedure well. All intraoperative counts were confirmed as being correct. The patient was repositioned from the dorsal lithotomy to the supine position, awakened from general anesthesia, extubated, and transferred to the recovery room in satisfactory condition. Dictated By: Arjun Quintanilla MD WT: OP:F.DARIN/COOJA.05/NTSDD: 11/07/2018 11:11:25DT: 11/07/2018 12:48:05Conf#: [id number]/DID#: [id number] Authenticated and Edited by Arjun Quintanilla MD On 01/05/19 11:27:24 PM at 2329 PATIENT NAME: ANDREW HAWKINS jdmbwg1026-24-37H19:48:00F.[id number] lable for patient xdftHBSKNRNHQUMHGD6612-79-09C93:29:43 [facility] 2018-11-06 12:17:00 VTcweljollt45172235x ceKqWgTCAnqE8DUDCILYok20J+Eq6 6yt8rpH+T6BUsmmSRweWXMfxDi6WTRjopQ5204-44-44Q89:1 7:00 [facility] ([facility])Full Op NoteREPORT#:[id number] REPORT STATUS: SignedDATE:11/06/18 TIME: 1217 PATIENT: ANDREW HAWKINS UNIT #: [id number]#: [id number] ROOM/BED:: 93 AGE: 23 SEX: F ATTEND: Arjun Quintanilla AUTHOR: Arjun Quintanilla MD * ALL edits or amendments must be made on the electronic/computer document * Operative ReportORM Surgeries: Surgery Date and Time: 11/06/2018 1100 Proposed Primary Procedure: CERVICAL DILATION UTERINE CURETTAGE Start date: 11/06/18Start time: 1140 (End time: 1200)Pre-procedure diagnosis:Missed at 11 wksPost-procedure diagnosis:sameProcedures performed:Suction D CTechnique/Procedure:See dictationPrimary Surgeon: Montrell Quintanilla MDAssistant(s): noneAnesthesia: general anesthesiaOperative findings:Uterus 11 wks. No palpable adnexal masses. Moderate POCs obtained.Complications: noneEstimated blood loss in ml's: 175 mlSpecimens removed/altered: Products of conceptionImplant(s): noneFluids:600 mlUrine output:100 ml via straight catherizationApproach: vaginalDisposition: plan to D/C home, PACUCounts: Sponge count: correct Instrument count: correct Needle count: correctWound class: clean-contaminated at 1252 RPT #:[id number] OF REPORT OPOperative awonqn4946-35-87X17:17:00F.[id number] ilable for patient qpbbVQWIWIALSSHXBV1707-04-77Q02:52:30 [facility]
[2023-08-31] MEDS ORDERED: AMOX/K CLAV 875 MG TAB ONE (20:25)
[2023-08-31] MEDS ORDERED: TRAMADOL HCL 50 MG TAB ONE (20:26)
--- NOTE | 2023-08-31 20:29 | EDPHYS ---
Physician Documentation [facility] Name: Rain Adams Age: 28 yrs Sex: Female : 1995 Arrival Date: 08/31/2023 Time: 20:15 Bed IW1 Private MD: ED Physician Gamaliel Mcdaniel HPI: 08/30 21:00 This 28 yrs old Female presents to ER via Ambulatory with complaints of Toothache - kb x2days. 21:00 Pt is a 28 year old female who presents with tooth pain that started 2 days ago and has kb gotten worse. States the pain now radiates down left neck. Denies fever. States pain is worse with talking, eating. HATCH BOSS: 20:22 LMP 08/15/2023, unknown as6 Historical: - Allergies: 20:22 Vicodin; as6 - PMHx: 20:22 None; as6 - PSHx: 20:22 D\T\C; as6 - Immunization history:: Adult Immunizations not up to date. - Infectious Disease History:: Denies. - Social history:: Smoking status: Reported history of juuling and/or vaping. ROS: 20:22 Constitutional: As per HPI kb Exam: 20:59 Constitutional: This is a well developed, well nourished patient who is awake, alert, kb and in no acute distress. Head/Face: Normocephalic, atraumatic. Cardiovascular: Regular rate Respiratory: Respirations even and unlabored. No increased work of breathing. Talking in full sentences Abdomen/GI: Soft, non-tender. No distention Skin: Warm, dry with normal turgor. Normal color. MS/ Extremity: Pulses equal, no cyanosis. Neurovascular intact. Full, normal range of motion. Neuro: Awake and alert, GCS 15, oriented to person, place, time, and situation. Moves all extremities. Normal gait. 20:59 ENT: Dental exam: dental caries, gum swelling, pain, that is moderate, specifically in the lower left second molar (#18), Vital Signs: 20:19 BP 124 / 77; Pulse 88; Resp 18; Temp 97.8; Pulse Ox 100% ; Weight 105.23 kg; Height 5 as6 ft. 6 in. ; Pain 10/10; 20:19 Body Mass Index 37.45 (105.23 kg, 167.64 cm) as6 20:19 Pain Scale: Adult as6 MDM: 20:18 Patient medically screened. kb 20:59 Differential diagnosis: dental caries, gingivitis, dental abscess, pericoronitis. Data kb reviewed: vital signs, nurses notes. Counseling: I had a detailed discussion with the patient and/or guardian regarding the historical points, exam findings, and any diagnostic results supporting the discharge/admit diagnosis, the need for outpatient follow up, a dentist, to return to the emergency department if symptoms worsen or persist or if there are any questions or concerns that arise at home. Administered Medications: 20:28 Drug: Amoxicillin-Clavulanate PO 875 mg PO once Route: PO; as6 20:34 Follow up: Response: No adverse reaction as6 20:28 Drug: traMADol PO 50 mg PO once Route: PO; as6 20:34 Follow up: Response: No adverse reaction as6 Disposition: 21:04 Co-signature as Attending Physician, Gamaliel Mcdaniel MD I reviewed the patient's care rn provided by the Advanced Practice Provider and agree with the diagnosis and treatment plan. Disposition Summary: 08/31/23 20:28 Discharge Ordered Notes: Location: Home kb Condition: Stable kb Diagnosis - Other specified disorders of teeth and supporting structures kb Followup: kb - With: Emergency Department - When: As needed - Reason: Worsening of condition Followup: kb - With: Private Physician - When: 2 - 3 days - Reason: Recheck today's complaints, Continuance of care, Re-evaluation by your physician Discharge Instructions: - Discharge Summary Sheet kb - Dental Pain, [id number] kb - Dental Abscess, [id number] kb Forms: - Medication Reconciliation Form kb - Antibiotic Education kb - Prescription Opioid Use kb - Patient Portal Instructions kb - Leadership Thank You Letter kb Prescriptions: - Augmentin 875-125 mg Oral Tablet - take 1 tablet ORAL route every 12 hours for 10 days; 20 tablet; Refills: 0, kb Product Selection Permitted - Diclofenac Sodium 75 mg Oral tablet, delayed release (enteric coated) - take 1 tablet ORAL route 2 times per day As needed; 30 tablet; Refills: 0, kb Product Selection Permitted - Tramadol 50 mg Oral Tablet - take 1 tablet ORAL route every 8 hours as needed; 12 tablet; Refills: 0, rn Product Selection Permitted Signatures: Bekah Dior FNP-C FNP-Ckb Gamaliel Mcdaniel MD MD rn Balaji Sykes RN RN as6
--- NOTE | 2023-08-31 20:29 | ER ---
Nurse's Notes [facility] Name: Rain Adams Age: 28 yrs Sex: Female : 1995 Arrival Date: 08/31/2023 Time: 20:15 Bed IW1 Private MD: Diagnosis: Other specified disorders of teeth and supporting structures Presentation: 08/30 20:19 Chief complaint: Patient states: "I'm pretty sure I have an infected tooth" pt c/o left as6 lower facial pain. Coronavirus screen: At this time, the client does not indicate any symptoms associated with coronavirus-19. Ebola Screen: No symptoms or risks identified at this time. Initial Sepsis Screen: Does the patient meet any 2 criteria? No. Patient's initial sepsis screen is negative. Does the patient have a suspected source of infection? No. Patient's initial sepsis screen is negative. Risk Assessment: Do you want to hurt yourself or someone else? Patient reports no desire to harm self or others. Onset of symptoms was August 29, 2023. 20:19 Acuity: BAEU 4 as6 20:19 Method Of Arrival: Ambulatory as6 Triage Assessment: 20:23 General: Appears uncomfortable, Behavior is calm, cooperative. Pain: Complains of pain as6 in lower left second molar. EENT: Reports pain in mouth. PROOF INSPECTOR: 20:22 LMP 08/15/2023, unknown as6 Historical: - Allergies: 20:22 Vicodin; as6 - PMHx: 20:22 None; as6 - PSHx: 20:22 D\\T\\C; as6 - Immunization history:: Adult Immunizations not up to date. - Infectious Disease History:: Denies. - Social history:: Smoking status: Reported history of juuling and/or vaping. Screenin:22 [facility] ED Fall Risk Assessment (Adult) History of falling in the last 3 months, as6 including since admission No falls in past 3 months (0 pts) Confusion or Disorientation No (0 pts) Intoxicated or Sedated No (0 pts) Impaired Gait No (0 pts) Mobility Assist Device Used No (0 pt) Altered Elimination No (0 pt) Score/Fall Risk Level 0 - 2 = Low Risk Oriented to surroundings, Maintained a safe environment, Educated pt \\T\\ family on fall prevention, incl call for assistance when getting out of bed, Assessed \\T\\ reinforced patient's understanding of fall precautions. Abuse screen: Denies threats or abuse. Denies injuries from another. Nutritional screening: No deficits noted. Tuberculosis screening: No symptoms or risk factors identified. Vital Signs: 20:19 BP 124 / 77; Pulse 88; Resp 18; Temp 97.8; Pulse Ox 100% ; Weight 105.23 kg; Height 5 as6 ft. 6 in. ; Pain 10/10; 20:19 Body Mass Index 37.45 (105.23 kg, 167.64 cm) as6 20:19 Pain Scale: Adult as6 ED Course: 20:17 Patient arrived in ED. ra3 20:18 Bekah Dior FNP-C is [facility]. kb 20:18 Gamaliel Mcdaniel MD is Attending Physician. kb 20:22 Triage completed. as6 20:22 Arm band placed on. as6 20:23 Bed in low position. Call light in reach. Provided Education on: abx, follow up with as6 dentist . 20:23 No provider procedures requiring assistance completed. Patient did not have IV access as6 during this emergency room visit. 20:27 Balaji Sykes, RN is Primary Nurse. as6 Administered Medications: 20:28 Drug: Amoxicillin-Clavulanate PO 875 mg PO once Route: PO; as6 20:34 Follow up: Response: No adverse reaction as6 20:28 Drug: traMADol PO 50 mg PO once Route: PO; as6 20:34 Follow up: Response: No adverse reaction as6 Medication: 20:23 VIS not applicable for this client. as6 Outcome: 20:24 Condition: stable as6 20:28 Discharge ordered by . kb 20:34 Discharged to home ambulatory, with friend, as6 20:34 Discharge instructions given to patient, Instructed on discharge instructions, follow up and referral plans. medication usage, Demonstrated understanding of instructions, follow-up care, medications, Prescriptions given X 2, 20:34 Patient left the ED. as6 Signatures: Bekah Dior FNP-C FNP-Balaji Tovar, RN RN as6 Archana Aguilar ra3
[2023-08-31 20:56] VITALS: BP 124/77; TEMP 97.8; O2SAT 100
== END 2023-08-31 20:34 | disposition home or self-care (01) ==
LOC: ER 20:15
DX: K08.89 Other specified disorders of teeth and supporting structures (principal)
CPT/HCPCS: 99283